=== PATIENT | female | born 1955 | race Caucasian/White ===

== ENCOUNTER 2018-04-16 12:52 | Emergency (ER) | payer SELFPAY ==
[2018-04-16] MEDS ORDERED: Metoclopramide HCl 10 MG/2 ML VIAL ONE (13:49)
[2018-04-16] MEDS ORDERED: diphenhydrAMINE 25 MG CAP ONE (13:54)
[2018-04-16 13:55] LABS: #Basophils 0.1 thou/uL (0.0-0.2); #Eosinphils 0.2 thou/uL (0.0-0.7); #Lymphocytes 1.5 thou/uL (1.20-3.40); #Monocytes 0.5 thou/uL (0.11-0.59); #Neutrophils 9.2 thou/uL (1.40-6.50); %Basophils 0.5 % (0.0-1.0); %Eosinophils 1.5 % (0.0-10.0); %Lymphocytes 12.9 % (21.0-51.0); %Monocytes 4.1 % (0.0-10.0); %Neutrophils 81.1 % (42.0-75.0); Hemoglobin 13.1 g/dL (12.0-16.0); Mean Corpuscular HGB CONC 33.5 g/dL (32.0-36.0); Mean Corpuscular Hemoglobin 30.4 pg (27.0-31.0); Mean Corpuscular Volume 90.6 fL (78.0-98.0); Mean Platelet Volume 9.1 fL (7.4-10.4); Platelet Count 196 thou/uL (130-400); RBC Distribution Width 12.7 % (11.5-14.5); Red Blood Cell (RBC) Count 4.31 mill/uL (4.20-5.40); White Blood Cell (WBC) Count 11.3 thou/uL (4.8-10.8)
[2018-04-16 14:17] LABS: ALT (SGPT) 15 U/L (8-55); AST (SGOT) 18 U/L (5-34); Albumin 4.1 g/dL (3.4-4.8); Alkaline Phosphatase 75 U/L (40-150); Anion Gap 14 mmol/L (10-20); BUN (Urea Nitrogen) 20 mg/dL (9.8-20.1); Bilirubin, Total 0.7 mg/dL (0.2-1.2); Calc. Creatinine Clearance 0 mL/min (70-130); Calcium 9.7 mg/dL (7.8-10.44); Carbon Dioxide 24 mmol/L (23-31); Chloride 104 mmol/L (98-107); Estimated GFR-MDRD 57; Globulin 3.2 g/dL (2.4-3.5); Glucose 116 mg/dL (80-115); Potassium 4.1 mmol/L (3.5-5.1); Protein, Total 7.3 g/dL (6.0-8.3); Sodium 138 mmol/L (136-145)
[2018-04-16 14:21] LABS: CKMB 1.6 ng/mL (0-6.6); Troponin I Less than 0.010 ng/mL (< 0.028)
--- NOTE | 2018-04-16 15:07 | RAD ---
CHEST 1 VIEW: HISTORY: Chest pain. COMPARISON: 08/07/2016. FINDINGS: Cardiac silhouette is magnified by projection. Pulmonary vasculature is unremarkable. Mediastinum i s midline with aortic calcification. No lobar consolidation or evidence of pneumothorax. Cardiac mo nitor leads overlie the chest. IMPRESSION: 1. Atherosclerosis. 2. No active cardiopulmonary abnormalities are demonstrated. POS: [facility]
== END 2018-04-16 15:49 | disposition home or self-care (01) ==
LOC: ERS 12:52
DX: R07.89 Other chest pain (principal); R51 Headache; E11.40 Type 2 diabetes mellitus with diabetic neuropathy, unspecified; E78.5 Hyperlipidemia, unspecified; K21.9 Gastro-esophageal reflux disease without esophagitis
CPT/HCPCS: 71045; 80053; 82553; 84484; 85025; 93005; 96361; 96374; J2765

== ENCOUNTER 2019-09-21 18:51 | Inpatient (IN) | payer SELFPAY ==
[2019-09-21] MEDS ORDERED: Ondansetron PF 4 MG/2 ML Vial ONE (19:04)
--- NOTE | 2019-09-21 20:17 | ULT ---
GALLBLADDER ULTRASOUND: 09/21/19 INDICATIONS: Right upper quadrant pain. Images of the gallbladder show evidence of mild pericholecystic edema. No gallstones are identified. The technologist describes a negative Kurtz's sign. The common duct is normal caliber measured at 5 to 6 mm. Pancreas is mostly obscured. The liver is unremarkable. The right kidney is unremarkable. IMPRESSION: Mild pericholecystic edema. No gallstones identified. Technologist describes a negative Kurtz's sign . POS: [facility]
[2019-09-21] MEDS ORDERED: Acetaminophen 325 MG TAB PO PRN (22:20)
[2019-09-21] MEDS ORDERED: Ondansetron PF 4 MG/2 ML Vial IVP PRN (22:20)
[2019-09-21] MEDS ORDERED: Ondansetron ODT 4 MG TAB SL PRN (22:20)
[2019-09-21 22:27] VITALS: BMI 31.1
[2019-09-21 23:11] LABS: Troponin I Less than 0.010 ng/mL (< 0.028)
--- NOTE | 2019-09-22 01:09 | PDOC.HHP ---
Hospitalist HPI - History of Present Illness Chest pain History of Present Illness: PCP: Mary Calhoun The patient is a 63/f with PMH significant for DMII, HLD, GERD that presents to the ER for the above complaint. The patient reports developing substernal chest pain, onset 1300, dull, 2/10, radiating to her back. The pain was constant and intensified for several hours. Exacerbated by nothing, relieved by nothing. Reports associated nausea and vomiting. Denies heart palpitations, light headedness, abdominal pain. For this reason, she went to the ER in [place]. ED Course: VS 97.3F, BP 170/73, HR 72, RR 13, Sp02 98% RA EKG SB 45 bpm CXR new linear opacity of RLL atelectasis or infiltrate troponins negative BNP 49 AST 217 ALT 542 bilirubin and ALP WNL RUQ US + for mild pericholecystic edema with negative arroyo sign Given: ASA and jese Hospitalist ROS - Review of Systems Constitutional: denies: fever, chills, sweats, weakness, malaise, other Eyes: denies: pain, vision change, conjunctivae inflammation, eyelid inflammation, redness, other ENT: denies: ear pain, ear discharge, nose pain, nose discharge, nose congestion , mouth pain, mouth swelling, throat pain, throat swelling, other Respiratory: denies: cough, dry, shortness of breath, hemoptysis, SOB with excertion, pleuritic pain, sputum, wheezing, other Cardiovascular: reports: chest pain. denies: palpitations, orthopnea, paroxysmal noc. dyspnea, light headedness Gastrointestinal: reports: nausea, vomiting. denies: abdominal pain, diarrhea, constipation, melena, hematochezia Genitourinary: denies: dysuria, frequency, incontinence, hematuria, retention, other Skin: denies: rash, bruising Neurological: denies: weakness, numbness, incoordination, change in speech, confusion Hospitalist History - Past Medical History Source: patient Cardiac: reports: HTN, Hyperlipidemia ARCHITECTURAL EXAMINER: reports: Peripheral neuropathy Gastrointestinal: reports: GERD Endocrine: reports: Diabetes - Past Surgical History Past Surgical History: reports: Hysterectomy - Family History Family History: reports: no pertinent history (non contributory for this case) - Social History Smoking Status: Never smoker Alcohol: reports: None Drugs: reports: none Living Situation: With Family 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 , works at cafe Activity level: independent ambulation - Exam General Appearance: NAD, awake alert Eye: anicteric sclera ENT: normocephalic atraumatic Neck: supple, no JVD Heart: RRR, no gallops, no rubs, normal peripheral pulses, II/IV Respiratory: CTAB, no wheezes, no rales, no ronchi, normal chest expansion Gastrointestinal: soft, non-tender, non-distended, normal bowel sounds, no guarding, no rigidity Extremities: no cyanosis, no edema Skin: no rashes Neurological: no focal deficits Psychiatric: normal affect, A&O x 3 Hospitalist Results - Labs Lab results: Troponin I Less than 0.010 ng/mL (< 0.028) 09/21/19 22:37 - EKG Interpretation EKG: SB 45 bpm in [place] ER - Radiology Interpretation US - abdomen Status: report reviewed by me Chest x-ray Status: report reviewed by me Hospitalist H&P A/P - Problem (1) Chest pain Code(s): R07.9 - CHEST PAIN, UNSPECIFIED Status: Acute Assessment and Plan: Admit to telemtry floor, observation status Expected length of stay less than 24 hours Heart score 4 Trend troponins Order Echocardiogram Consult cardiology Continue ASA Check TSH, FLP, Mag (2) Sinus bradycardia Code(s): R00.1 - BRADYCARDIA, UNSPECIFIED Status: Acute Assessment and Plan: Patient states never had slow heart rate Currently NSR Will obtain echocardiogram (3) Elevated liver enzymes Code(s): R74.8 - ABNORMAL LEVELS OF OTHER SERUM ENZYMES Status: Acute Assessment and Plan: Bilirubin and ALP withing normal limits Will order HIDA scan NPO p midnight light IVF hydration avoid hepatoxic medications Order lipase Repeat CMP in am (4) HLD (hyperlipidemia) Code(s): E78.5 - HYPERLIPIDEMIA, UNSPECIFIED Status: Chronic Assessment and Plan: No medication regimen Will check FLP in am (5) DMII (diabetes mellitus, type 2) Status: Chronic Assessment and Plan: Mild sliding scale AC/HS accuchecks Hold metformin and glypizide for now Last HA1C 6.3 (05/28/19) will recheck HA1C (6) HTN (hypertension) Code(s): I10 - ESSENTIAL (PRIMARY) HYPERTENSION Status: Acute Assessment and Plan: Will continue to monitor patient reports taking meds prn for blood pressure (7) GERD (gastroesophageal reflux disease) Code(s): K21.9 - GASTRO-ESOPHAGEAL REFLUX DISEASE WITHOUT ESOPHAGITIS Status: Acute Assessment and Plan: Will start Protonix IVP - Plan Plan: SCDs for DVT prophylaxis Full Code DPEMELIA [place] [phone]
[2019-09-22] MEDS ORDERED: Dextrose 5% in Water 1,000 ML IV PRN (01:14)
[2019-09-22] MEDS ORDERED: HumaLOG 300 UNITS/3 ML VIAL SC PRN (01:14)
[2019-09-22] MEDS ORDERED: Dextrose 50% Abboject 50 ML SYRINGE SLOW IVP PRN (01:14)
[2019-09-22] MEDS: Sodium Chloride 0.9% 1,000 ML IV SCH (01:53)
[2019-09-22 05:06] LABS: #Basophils 0.1 thou/uL (0.0-0.2); #Eosinphils 0.6 thou/uL (0.0-0.7); #Lymphocytes 0.9 thou/uL (1.20-3.40); #Monocytes 0.5 thou/uL (0.11-0.59); #Neutrophils 4.2 thou/uL (1.40-6.50); %Basophils 1.1 % (0.0-1.0); %Eosinophils 9.6 % (0.0-10.0); %Lymphocytes 14.4 % (21.0-51.0); %Monocytes 7.5 % (0.0-10.0); %Neutrophils 67.3 % (42.0-75.0); Hemoglobin 12.2 g/dL (12.0-16.0); Mean Corpuscular HGB CONC 34.3 g/dL (32.0-36.0); Mean Corpuscular Hemoglobin 31.4 pg (27.0-31.0); Mean Corpuscular Volume 91.4 fL (78.0-98.0); Mean Platelet Volume 9.9 fL (7.4-10.4); Platelet Count 131 thou/uL (130-400); RBC Distribution Width 12.9 % (11.5-14.5); White Blood Cell (WBC) Count 6.3 thou/uL (4.8-10.8)
[2019-09-22 05:27] LABS: Hemoglobin A1c 6.6 % (4.0-6.0)
[2019-09-22 05:34] LABS: ALT (SGPT) 489 U/L (8-55); AST (SGOT) 199 U/L (5-34); Albumin 3.8 g/dL (3.4-4.8); Alkaline Phosphatase 87 U/L (40-110); Anion Gap 13 mmol/L (10-20); BUN (Urea Nitrogen) 18 mg/dL (9.8-20.1); Bilirubin, Total 0.7 mg/dL (0.2-1.2); Calc. Creatinine Clearance 68 mL/min (70-130); Calcium 9.2 mg/dL (7.8-10.44); Carbon Dioxide 26 mmol/L (23-31); Cardiac Risk 4.7 (Less than 4.5); Chloride 104 mmol/L (98-107); Cholesterol 135 mg/dl (< 200 Desired); Estimated GFR-MDRD 49; Globulin 2.7 g/dL (2.4-3.5); Glucose 205 mg/dL (80-115); HDL Cholesterol 29 mg/dL (>60 Neg Risk); LDL Cholesterol, Calculated 86 mg/dL; Lipase 96 U/L (8-78); Magnesium 1.5 mg/dL (1.6-2.6); Potassium 3.9 mmol/L (3.5-5.1); Protein, Total 6.5 g/dL (6.0-8.3); Sodium 139 mmol/L (136-145); Triglycerides 102 mg/dL (Less than 150)
[2019-09-22] MEDS: Pantoprazole 40 MG VIAL IVP SCH (13:23)
[2019-09-22] MEDS: Aspirin 81 mg Enteric Coated Tablet PO SCH (13:23)
--- NOTE | 2019-09-22 13:24 | PDOC.HOSPP ---
- Subjective Encounter Date: 09/22/19 Encounter Time: 11:15 Subjective: no retrosternal pain or abd pain now no nausea or vomiting is ambulating in room she had taken 2 rounds of antibiotics for bronchitis in the last 3 weeks - Objective Vital Signs & Weight: Vital Signs (12 hours) Temp Pulse Resp BP Pulse Ox 09/22/19 07:27 98.1 F 72 16 128/62 96 09/22/19 04:50 98.0 F 75 16 128/61 95 Weight Weight 187 lb 3.2 oz I&O: 09/21/19 09/22/19 09/23/19 06:59 06:59 06:59 Intake Total 487 Output Total 300 Balance 187 Result Diagrams: 09/22/19 04:43 09/22/19 04:43 Additional Labs: Accuchecks 09/21/19 22:03 POC Glucose 62 L Hospitalist ROS - Medication Medications: Active Medications Generic Name Dose Route Start Last Admin Trade Name Freq PRN Reason Stop Dose Admin Sodium Chloride 1,000 mls @ 50 mls/hr 09/22/19 03:00 09/22/19 01:53 Normal Saline 0.9% IV 1,000 mls .Q20H AMBER Administration - Exam General Appearance: awake alert Eye: PERRL, anicteric sclera ENT: no oropharyngeal lesions, moist mucosa Neck: supple, no JVD Heart: RRR, no murmur Respiratory: no wheezes, no rales Gastrointestinal: soft, non-tender, non-distended, normal bowel sounds Extremities: no cyanosis, no edema Neurological: cranial nerve grossly intact, no focal deficits Psychiatric: normal affect, A&O x 3 Hosp A/P (1) Chest pain Code(s): R07.9 - CHEST PAIN, UNSPECIFIED Status: Acute (2) Elevated liver enzymes Code(s): R74.8 - ABNORMAL LEVELS OF OTHER SERUM ENZYMES Status: Acute (3) GERD (gastroesophageal reflux disease) Code(s): K21.9 - GASTRO-ESOPHAGEAL REFLUX DISEASE WITHOUT ESOPHAGITIS Status: Chronic Qualifiers: Esophagitis presence: esophagitis presence not specified Qualified Code(s) : K21.9 - Gastro-esophageal reflux disease without esophagitis (4) HTN (hypertension) Code(s): I10 - ESSENTIAL (PRIMARY) HYPERTENSION Status: Chronic Qualifiers: Hypertension type: essential hypertension Qualified Code(s): I10 - Essential (primary) hypertension (5) DMII (diabetes mellitus, type 2) Status: Chronic Qualifiers: Diabetes mellitus moth exterminator insulin use: without moth exterminator use (6) HLD (hyperlipidemia) Code(s): E78.5 - HYPERLIPIDEMIA, UNSPECIFIED Status: Chronic Qualifiers: Hyperlipidemia type: unspecified Qualified Code(s): E78.5 - Hyperlipidemia , unspecified (7) Obesity (BMI 30.0-34.9) Code(s): E66.9 - OBESITY, UNSPECIFIED Status: Chronic - Plan has elevated LFT's in cholestatic pattern, likely due to recent antibiotics for bronchitis usg RUQ showed mild edema of Gall bladder wall but no stones, cbd size was normal await HIDA, CT abd results (is allergic to iodine getting premedicated) last stress test in 2012 was normal with normal ef hemostable d/w patient and her neice at bedside
--- NOTE | 2019-09-22 13:54 | NM ---
HEPATOBILIARY SCAN: Date: 09/22/2019 HISTORY: 63-year-old female with right upper quadrant pain and mild pericholecystic edema on the gallbladder u ltrasound from yesterday. No gallstones are seen. RADIOPHARMACEUTICAL: 5.2 mCi technetium-99m mebrofenin injected intravenously. FINDINGS: There is good tracer extraction by the liver with prompt excretion into the biliary tract and small b owel loops, and filling of the gallbladder. The calculated gallbladder ejection fraction following an oral fatty meal measures 93%. IMPRESSION: Normal exam. POS: [facility]
[2019-09-22 15:19] LABS: HBCM Index 0.06 S/CO (0-0.79); Hep A IgM AB Non-Reactive (NonReactive); Hep A IgM S/CO 0.51 S/CO (0-0.79); Hep B Surf Ag Non-Reactive S/CO (NonReactive); Hep C IgG Ab Non-Reactive (NonReactive); Hep C Index 0.08 S/CO (0-0.79); Hepatitis B Core IgM Abs Non-Reactive (NonReactive)
--- NOTE | 2019-09-22 16:32 | CON ---
DATE OF CONSULTATION: 09/22/2019 REASON FOR CONSULTATION: Chest pain. HISTORY OF PRESENT ILLNESS: Mrs. Rob is a 63-year-old woman. The patient had an episode of chest pain yesterday, it was lower substernal and lasted for about 2 hours, it made her feel very uncomfortable. She was transferred here. She was found to have normal cardiac enzymes, but markedly increased liver function tests. The patient is pain-free now. She did not have chest pain or pressure. PAST MEDICAL HISTORY: 1. Diabetes. 2. Negative for smoking. 3. No previous cardiac history. She had some chest pain in 2012, normal stress test apparently. She also has a history of esophageal reflux. REVIEW OF SYSTEMS: CONSTITUTIONAL: No significant weight gain or loss. VISION: No changes. HEARING: No changes. PULMONARY: No cough or wheezing. GASTROINTESTINAL: No nausea, vomiting, or diarrhea. SKIN: No rashes. NEUROLOGIC: No unilateral weakness or numbness. PSYCHIATRIC: No unusual depression or anxiety. MEDICATIONS: 1. Prior to admission, she did take some erythromycin, but that was couple of weeks ago. 2. Metformin. 3. Glipizide. SOCIAL HISTORY: No alcohol or tobacco. PHYSICAL EXAMINATION: GENERAL: This is a pleasant 63-year-old woman, in no distress. VITAL SIGNS: Blood pressure 117/55, pulse 63 and regular. EYES: Sclerae nonicteric. Mouth, mucous membranes moist. NECK: Supple. No lymphadenopathy. LUNGS: Clear. CARDIAC: Normal S1, normal S2. I do not hear murmur, rub, or gallop. ABDOMEN: Obese, nontender. EXTREMITIES: Warm and dry. No clubbing, cyanosis, or edema. Good peripheral pulses. PERTINENT LABORATORY DATA: Creatinine is 1.12. AST is 199, ALT 489. The AST was 217 a day before and the ALT was 542, indicating they are coming down. EKGs, there was an episode of sinus bradycardia. No acute changes. Cardiac enzymes were negative. ASSESSMENT: 1. Chest pain of uncertain etiology. 2. Increased liver function test. 3. Normal troponin levels. 4. Allergic to iodine. PLAN: 1. CT scan of the abdomen is scheduled for tomorrow. 2. She is receiving prednisone. Obviously, her sugars will increase with that transiently. We will be glad to follow with you. Job ID: [id number]
[2019-09-22] MEDS: HumaLOG 300 UNITS/3 ML VIAL SC PRN (18:29)
[2019-09-22] MEDS ORDERED: tiZANidine HCl 4 MG TAB PO PRN (19:56)
[2019-09-22] MEDS ORDERED: predniSONE 50 MG TAB PO SCH (20:00)
[2019-09-22] MEDS: Melatonin 3 MG TAB PO SCH (21:59)
[2019-09-23] MEDS ORDERED: predniSONE 50 MG TAB PO SCH ×2 (02:00→08:00)
[2019-09-23] MEDS: Sodium Chloride 0.9% 1,000 ML IV SCH ×3 (02:01→21:51)
[2019-09-23 06:31] LABS: ALT (SGPT) 520 U/L (8-55); AST (SGOT) 162 U/L (5-34); Albumin 4.1 g/dL (3.4-4.8); Alkaline Phosphatase 96 U/L (40-110); Anion Gap 14 mmol/L (10-20); BUN (Urea Nitrogen) 18 mg/dL (9.8-20.1); Bilirubin, Total 0.7 mg/dL (0.2-1.2); Calc. Creatinine Clearance 57 mL/min (70-130); Calcium 9.1 mg/dL (7.8-10.44); Carbon Dioxide 24 mmol/L (23-31); Chloride 103 mmol/L (98-107); Estimated GFR-MDRD 39; Globulin 2.7 g/dL (2.4-3.5); Glucose 336 mg/dL (80-115); Potassium 4.9 mmol/L (3.5-5.1); Protein, Total 6.8 g/dL (6.0-8.3); Sodium 136 mmol/L (136-145)
[2019-09-23 06:36] LABS: Troponin I Less than 0.010 ng/mL (< 0.028)
[2019-09-23] MEDS ORDERED: diphenhydrAMINE 50 MG CAP PO SCH (08:00)
[2019-09-23] MEDS: Multivit, Therapeutic 1 TAB PO SCH (08:09)
[2019-09-23] MEDS: Aspirin 81 mg Enteric Coated Tablet PO SCH (08:09)
[2019-09-23] MEDS: Pantoprazole 40 MG VIAL IVP SCH (08:10)
--- NOTE | 2019-09-23 09:42 | CT ---
EXAM: CT abdomen with and without IV contrast CT pelvis with IV contrast PROVIDED CLINICAL HISTORY: Mid epigastric abdominal pain with nausea and vomiting. Evaluate for pancreatitis. COMPARISON: None FINDINGS: Vascular calcifications are seen in the coronary arteries as well as in the abdominal aorta and iliac arteries. A coarse calcification is seen in the dome of the liver which is likely reflective of prior granuloma tous disease. Liver otherwise demonstrates a normal CT appearance. Gallbladder is contracted. Portal veins are patent. Spleen, pancreas, bilateral adrenal glands, and kidneys demonstrate a normal CT appearance. No pancre atic mass or pancreatic or peripancreatic fluid collection is seen. There is a large fluid attenuation collection seen in the left adnexal region measuring 6.9 cm cranio caudal x10 cm AP x5.7 cm transverse. Small calcification is seen posteriorly along the wall of the cystic lesion. This could be related to left adnexal cyst which could be ovarian in origin and relate d to cystadenoma or cystadenocarcinoma given large size. This does result in mass effect on the posterolateral aspect of the urinary bladder. There is evidence of hysterectomy. Small amount of retained fecal material seen throughout the colon. The appendix is visualized and nor mal in caliber. Loops of small bowel are normal in caliber. No free fluid or lymphadenopathy is seen in the abdomen. Multilevel degenerative changes are seen in the spine. No suspicious lytic or sclerotic osseous lesio ns are identified. IMPRESSION: 1. Left adnexal cystic lesion which does demonstrate fluid attenuation with greatest dimension of 10 cm. This may represent a left adnexal cystic lesion related to either cystadenoma or cystadenocarcinoma. Gynecological consultation is recommended for further evaluation. 2. Evidence of hysterectomy. 3. No CT evidence of pancreatitis. Pancreas enhances normally, and no pancreatic or peripancreatic fl uid collection is identified. 4. Vascular calcifications. 6. Small to moderate amount of retained fecal material seen throughout the colon suggesting constipat ion.
[2019-09-23] MEDS: HumaLOG 300 UNITS/3 ML VIAL SC PRN (12:33)
[2019-09-23] MEDS ORDERED: Iopamidol 370 76% 100 ML VIAL ONE (15:00)
--- NOTE | 2019-09-23 18:24 | ULT ---
PELVIC ULTRASOUND: 09/23/19 INDICATIONS: Follow-up pelvic mass seen on CT. Transabdominal and endovaginal ultrasound performed. Patient is post hysterectomy many years ago. Large cystic mass in the left adnexa is again seen corresponding to the CT findings. This measures ap proximately 7 x 10 cm on ultrasound. This is mildly complex. Site of origin cannot be confirmed. IMPRESSION: Large cystic mass left pelvis. POS: [facility]
--- NOTE | 2019-09-23 18:42 | CON ---
DATE OF CONSULTATION: 09/23/2019 REQUESTING PHYSICIAN: [facility] CONSULT PERFORMED BY: Kenny Blair MD REASON FOR CONSULTATION: Pelvic mass seen on CT. HISTORY OF PRESENT ILLNESS: Ms. Rob is a 63-year-old, white, G2, P1, menopausal times many years status post abdominal hysterectomy, who was initially admitted to the hospital with complaints of epigastric and chest pain. During the course of her workup, she had a CT done this morning, that demonstrated a 6.9 x 10 x 5.7 fluid attenuation consistent with a left adnexal mass. The patient states that her last Pap smear was approximately 2 years ago, and her exam was normal at that time. She denies associated pelvic pain. PAST OBSTETRICAL HISTORY: She has had 1 section as well as 1 stillbirth at 6 months delivered in [place], [place]. She states that she had a hysterectomy many years ago. It is unclear what the indication for that was. PAST MEDICAL HISTORY: Type 2 diabetes and diabetic neuropathy. PAST SURGICAL HISTORY: Abdominal hysterectomy and as above. MEDICATIONS ON ADMISSION: 1. Metformin. 2. Glyburide. 3. Medical cannabis like product. ALLERGIES: IODINE. SOCIAL HISTORY: Denies tobacco, alcohol, or drug use. FAMILY HISTORY: She denies pelvic malignancy in the family. REVIEW OF SYSTEMS: Denies pelvic pain or vaginal bleeding. PHYSICAL EXAMINATION: VITAL SIGNS: Blood pressure 123/63, pulse 69, respirations 16 with 92% O2 on room air, temperature is 98.4. GENERAL: She is pleasant and in no acute distress. She is a good historian. ABDOMEN: Soft and nontender. There is no guarding or rebound. There is a well-healed midline scar seen. LABORATORY DATA: On admission, white count 6.3, hemoglobin and hematocrit 12.2 and 35.6, platelet count is 131,000. Recent chemistry showed a creatinine of 1.36. Her total bilirubin is 0.7, and her AST and ALT are 162 and 520 respectively. Serial troponins have been ordered. ASSESSMENT: Pelvic mass. PLAN: I have ordered an ultrasound as well as a CA-125 to further define this pelvic mass seen on CT. Of note is the fact that she has a stress test as part of a cardiac workup ordered for in the morning. We will follow up with her regarding these results. Job ID: [id number]
--- NOTE | 2019-09-23 19:35 | PDOC.HOSPP ---
- Subjective Encounter Date: 09/23/19 Encounter Time: 18:00 Subjective: The patient states her chest pain hasn't reoccurred since being in the hospital. She had an episode while sitting and watching a movie and states that it was severe in the middle of her chest and it took her breath away and brought her to tears. It was relieved by aspirin. No diaphoresis or arm pain. She denies abdominal pain, nausea, vomiting. She did have some nausea on the day of admission - Objective Vital Signs & Weight: Vital Signs (12 hours) Temp Pulse Resp BP Pulse Ox 09/23/19 15:45 97.3 F L 76 16 129/70 94 L 09/23/19 11:45 98.4 F 69 16 122/63 92 L 09/23/19 07:34 97.8 F 78 18 112/61 94 L Weight Weight 191 lb I&O: 09/22/19 09/23/19 09/24/19 06:59 06:59 06:59 Intake Total 487 1572 Output Total 300 1850 Balance 187 -278 Result Diagrams: 09/22/19 04:43 09/23/19 04:44 Additional Labs: Accuchecks 09/23/19 09/23/19 09/23/19 16:21 10:23 06:10 POC Glucose 329 H 268 H 314 H 09/22/19 20:19 POC Glucose 126 H Hospitalist ROS - Review of Systems Constitutional: denies: fever, chills - Medication Medications: Active Medications Generic Name Dose Route Start Last Admin Trade Name Freq PRN Reason Stop Dose Admin Aspirin 81 mg 09/22/19 09:00 09/23/19 08:09 Ecotrin PO 81 mg DAILY AMBER Administration Sodium Chloride 1,000 mls @ 80 mls/hr 09/23/19 08:15 09/23/19 10:36 Normal Saline 0.9% IV 09/23/19 22:00 Not Given .[id number] AMBER Insulin Human Lispro 0 units 09/22/19 01:14 09/23/19 12:33 Humalog SC 4 unit .MILD SLIDING SCALE PRN Administration Mild Correctional Scale Insulin Human Lispro 0 units 09/22/19 01:14 09/23/19 06:10 Humalog SC 4 unit .BEDTIME SLIDING SC PRN Administration Bedtime Correctional Scale Melatonin 9 mg 09/22/19 21:00 03/18/20 21:59 Melatonin PO 9 mg HS AMBER Administration Multivitamins 1 tab 09/23/19 09:00 09/23/19 08:09 Theragran PO 1 tab DAILY AMBER Administration Pantoprazole Sodium 40 mg 09/22/19 09:00 09/23/19 08:10 Protonix IVP 40 mg DAILY AMBER Administration - Exam General Appearance: NAD, awake alert Eye: PERRL, anicteric sclera ENT: normocephalic atraumatic, no oropharyngeal lesions Neck: supple, no JVD Heart: RRR, no murmur, no gallops, no rubs Respiratory: CTAB, no wheezes, no rales, no ronchi Gastrointestinal: soft, non-tender, non-distended, normal bowel sounds Extremities: no cyanosis, no clubbing, no edema Skin: normal turgor, no lesions, no rashes Neurological: cranial nerve grossly intact, normal sensation to touch, no focal deficits, no new deficit Hosp A/P - Plan ECHO: EF 60-65%. Otherwise normal. CT abdomen 09/22: vascular calcifications seen in the coronary arteries. Gallbladder contracted. Prior granulomatous disease in the liver. 6.9 cm by 10 cm x 5.7 cm left adnexal lesion with resulting mass affect on posterolateral aspect of urinary bladder. Constipation. Pelvic ultrasound: large cystic mass left adnexa 7 x 10 cm This is a 63 year old female with past medical history of diabetes who presented to the ER with chest pain #Chest pain - she has had negative HIDA scan, ECHO was normal, troponin negative - cardiology consulted, plan for stress test tomorrow #Left ovarian mass - noted initially on CT abdomen. Pelvic ultrasound shows large cystic mass. OBGYn consulted and following #Diabetes - insulin sliding scale #Transaminitis - LFT downtrending. Hepatitis serology negative DVT prophylaxis: Code status:full code
[2019-09-23] MEDS: Melatonin 3 MG TAB PO SCH (21:51)
[2019-09-24 05:05] LABS: Troponin I Less than 0.010 ng/mL (< 0.028)
[2019-09-24 05:06] LABS: ALT (SGPT) 325 U/L (8-55); AST (SGOT) 47 U/L (5-34); Albumin 3.5 g/dL (3.4-4.8); Alkaline Phosphatase 77 U/L (40-110); Anion Gap 10 mmol/L (10-20); BUN (Urea Nitrogen) 19 mg/dL (9.8-20.1); Bilirubin, Total 0.5 mg/dL (0.2-1.2); Calc. Creatinine Clearance 71 mL/min (70-130); Calcium 8.6 mg/dL (7.8-10.44); Carbon Dioxide 26 mmol/L (23-31); Chloride 106 mmol/L (98-107); Estimated GFR-MDRD 50; Globulin 2.3 g/dL (2.4-3.5); Glucose 231 mg/dL (80-115); Protein, Total 5.8 g/dL (6.0-8.3); Sodium 138 mmol/L (136-145)
[2019-09-24] MEDS: Pantoprazole 40 MG VIAL IVP SCH (08:23)
[2019-09-24] MEDS: Multivit, Therapeutic 1 TAB PO SCH (08:24)
[2019-09-24] MEDS: Aspirin 81 mg Enteric Coated Tablet PO SCH (08:24)
--- NOTE | 2019-09-24 13:03 | STRESS ---
Acquisition Time: 2019-09-24 11:03:18 Total Exercise Time: 00:01:00 Test Indications: CHEST PAIN Medications: Protocol: LEXISCAN Max HR: 083 BPM 53% of Pred: 156 BPM Max BP: 122/060 mmHG Max Work Load: 1.0 METS THE PATIENT WAS INJECTED WITH LEXISCAN. SHE DID DEVELOP CHEST PAIN. THERE WAS NO SIGNIFICANT ST DEPRESSION. AWAIT NUCLEAR IMAGES FOR DEFINITIVE DIAGNOSIS. Confirmed by LESLI GALLO ([id number]), marketing editor KATHARINE CADE ([id number]) on 09/24/2019 1:03:00 PM Referred By: MD Benjamin REESE Confirmed By:LESLI GALLO
--- NOTE | 2019-09-24 14:16 | NM ---
MYOCARDIAL PERFUSION SCAN: 09/24/19 INDICATIONS: Chest pain. The patient was given 10 millicuries of technetium Sestamibi for rest imaging and 30 millicuries for stress imaging. The patient was stressed according to Lexiscan protocol. FINDINGS: The left ventricle was imaged with SPECT imaging. Attenuation images obtained. There is decreased activity in the apex on stress images seen with both nonattenuation and attenuatio n correction. Activity in the apex is seen on the rest images. Wall motion appears normal. Ejection fraction recorded at 80%. IMPRESSION: Evidence of reversible ischemia in the apex. POS: [facility]
[2019-09-24] MEDS ORDERED: Polyethylene Glycol 3350 17 GM Packet PO PRN (14:29)
[2019-09-24] MEDS ORDERED: Senokot S 8.6-50 MG TAB PO SCH (14:30)
[2019-09-24] MEDS ORDERED: Regadenoson 0.4 MG/5 ML SYRINGE ONE (15:01)
[2019-09-24 15:21] VITALS: BP 122/61; TEMP 97.7
[2019-09-24] MEDS ORDERED: Nitroglycerin 0.4 MG TAB (25 Tab Bottle) SL PRN (15:57)
[2019-09-24] MEDS ORDERED: Clopidogrel Bisulfate 300 MG TAB PO SCH (16:00)
--- NOTE | 2019-09-24 16:25 | PRG ---
DATE OF SERVICE: 09/24/2019 SUBJECTIVE: Ms. Rob is doing fine. No chest pain or pressure. OBJECTIVE: VITAL SIGNS: Blood pressure 115/59, pulse 66, it is regular. She has also had some sinus bradycardia in the upper 40s early this morning at rate of 48. LUNGS: Clear. CARDIAC: Normal S1, normal S2. ABDOMEN: Soft, nontender. TESTS AND LABS: Stress test reveals some ischemia at the apex. Her liver function tests continue to improve. Please see the lab. ASSESSMENT: 1. Lower substernal chest pain, lasting about 2 hours of uncertain etiology. 2. Increased liver function test, improving. 3. Abnormal stress test. 4. Longstanding diabetes. 5. Allergic to iodine. PLAN: Recommend cardiac catheterization. Discussed with the patient the option of spending the weekend here and doing it Friday versus going home and bringing her back for the procedure. The patient did have negative cardiac enzymes, and I am really not sure if the pain she had is cardiac in origin as there were no EKG changes and troponins were all completely normal. I think it is reasonable to bring her back as an outpatient, but I did offer the option of staying here and getting it done, but she decides she wishes to go home. She understands there is some risk, but she wishes to proceed with going home and coming back as an outpatient. As a precaution, we will give her aspirin, Plavix, and then nitroglycerin. Our office will contact her. She said she goes on Medicare October 05. She wishes to await until then to come back for this procedure. I told her if she has recurrent chest pain resistant to one nitroglycerin, she should come back to the hospital. Job ID: [id number]
[2019-09-24] MEDS: HumaLOG 300 UNITS/3 ML VIAL SC PRN (17:08)
--- NOTE | 2019-09-24 17:45 | PDOC.BPN ---
- Brief Progress Note I discussed the findings of a normal Ca-125 with the patient. She will ultimately need surgery, but as it is not urgent, she can follow up as an outpatient for definitive management. A referral was sent to [facility]'s [place] for follow up in 2-3 weeks. The patient voiced understanding and wished to follow up after October first anyway. Please let us know if we can be of any further assistance.
[2019-09-24] MEDS ORDERED: Famotidine 20 MG TAB PO SCH (21:00)
--- NOTE | 2019-09-25 08:46 | EKG ---
Test Reason : Blood Pressure : / mmHG Vent. Rate : 045 BPM Atrial Rate : 045 BPM P-R Int : 160 ms QRS Dur : 074 ms QT Int : 456 ms P-R-T Axes : 031 -07 008 degrees QTc Int : 394 ms Sinus bradycardia Minimal voltage criteria for LVH, may be normal variant Borderline ECG Confirmed by JACQUES TOHRNTON D.O. ([id number]), assignment editor OLAMIDE DUTTA ([id number]) on 09/25/2019 8:45:31 AM Referred By: Confirmed By:JACQUES THORNTON D.O.
[2019-09-25] MEDS ORDERED: Clopidogrel Bisulfate 75 MG TAB PO SCH (09:00)
--- NOTE | 2019-09-27 08:52 | DIS ---
DATE OF ADMISSION: 09/21/2019 DATE OF DISCHARGE: 09/24/2019 DISCHARGE DIAGNOSES: 1. Chest pain possibly secondary to coronary artery disease 2. Left ovarian cyst 3. Tansaminitis. CONSULTATIONS: Cardiology with Dr. Marlon Guillaume; Dr. Kenny Blair with OB/ ASSISTANT SOFTBALL COACH. PROCEDURES: Nuclear stress test. BRIEF HISTORY AND PRESENT ILLNESS: This is a 63-year-old female with a past medical history of diabetes, hypertension, GERD, who presented to the emergency room due to substernal chest pain. The patient states that her chest pain that started while she was sitting and watching a movie. It was severe in the middle of her chest and it took her breath away and brought her to tears. She denied any shortness of breath or arm pain. The patient stated her pain was relieved by aspirin. She presented to the emergency room for further evaluation. She did have some nausea, but no other GI symptoms. Upon arrival to the emergency room, the patient had an EKG, which showed sinus bradycardia. She was admitted for further workup. She was also found to have transaminitis with an AST of 199, ALT of 489, and normal alkaline phosphatase. She was admitted for further workup. HOSPITAL COURSE: Chest pain, possibly secondary to CAD: The patient had 3 sets of troponins, which were normal. She did have a HIDA scan done due to transaminitis, which was normal. She underwent a CT scan of her abdomen on the , which happened to show a contracted gallbladder, prior granulomatous disease in the liver and a 6.9 cm x 10 cm x 5.7 cm left adnexal lesion. Cardiology was consulted and ordered a nuclear stress test which came back positive for reversible ischemia at the apex. Cardiology spoke with the patient and she decided that she wanted to go home and get a cardiac cath as an outpatient. She was loaded with Plavix 300 mg while in the hospital. Cardiology recommended the patient be started on aspirin, Plavix, and nitroglycerin p.r.n. She was not started on the beta shankar given the fact that she becomes bradycardic to the 40's at times. She should follow up with her PCP in a week and schedule an outpatient catheterization with Dr. Guillaume as soon as possible. Left ovarian mass: This was noted incidentally on CT scan of her abdomen. Gynecology was consulted and ordered a pelvic ultrasound which showed a large cystic mass in the left adnexum, 7 x 10 cm. CA-125 was normal. Gynecology felt that this is most likely benign. However, they did recommend that she follow up with [facility]FAC[facility] TECHNICIAN care given the small chance that it could be cancer and it may need to be resected at some point in the future. Transaminitis: The patient had LFTs that were elevated. Her hepatitis serology was checked, which was negative. Her CT scan of her abdomen showed no pathology. She is tolerating a diet on the day of discharge. DISCHARGE PHYSICAL EXAMINATION: VITAL SIGNS: Temperature 97.7, heart rate 56, respiratory rate 16, O2 saturation 97% on room air, blood pressure 122/61. GENERAL: The patient is alert, awake, oriented x3. CVS: Regular rate and rhythm with no murmurs, rubs, or gallops. LUNGS: Clear to auscultation bilaterally. ABDOMEN: Positive bowel sounds, soft, nontender, nondistended. EXTREMITIES: No edema. PERTINENT LABORATORY DATA: CBC on 09/21: Unremarkable. BMP on 09/23: Unremarkable. HB A1c: 6.6. AST: 199, 162, 47. ALT: 49, 520, 325. Alkaline phosphatase: Normal at 77. Troponin I: 0.010, 0.010 x3. Lipid panel: LDL 86, total cholesterol 135, HDL 29. Lipase: 96. CA-125: 12.4. TSH: 2.574. Serology: Negative for hepatitis panel. IMAGING DATA: Abdominal ultrasound on 09/20: Mild pericholecystic edema. No gallstones identified. HIDA scan on 09/21: Normal exam. CT abdomen and pelvis on 09/22: Left adnexal cystic lesion demonstrating fluid attenuation, greatest dimension of 10 cm. This may represent a left adnexal cystic lesion related to either cystadenoma or cystadenocarcinoma. No evidence of pancreatitis. Small to moderate amount of retained fecal material seen throughout the colon. Vascular calcifications. Pelvic ultrasound on 09/22: Large cystic mass in the left pelvis, 7 x 10 cm. Cardiolite stress test: The patient developed chest pain at rest. Nuclear stress test on 09/23: Evidence of a reversible ischemia at the apex. Echo: EF 60% to 65%. No evidence of MR. No evidence of mitral valve stenosis. DISCHARGE CONDITION: Stable. ACTIVITY: As tolerated. DIET: Heart healthy diet. DISCHARGE MEDICATIONS: NEW PRESCRIPTIONS: 1. Aspirin 81 mg p.o. daily. 2. Plavix 75 mg p.o. daily. 3. Nitroglycerin 0.4 mg sublingual q.5 minutes p.r.n. All other home medications were resumed. DISCHARGE INSTRUCTIONS: The patient is to follow up with her PCP in a week and her overlock operator in a week for outpatient cardiac cath. She is return to the hospital if she has any chest pain. Job ID: [id number] [facility]
== END 2019-09-24 17:30 | disposition home or self-care (01) | DRG 303 ==
LOC: ERS 18:51 → 2SW 20:40 → OBSVTOIN 20:40 → ERS 21:42 → 2NO 09-23 19:18
PROVIDERS: ADMIT Internal Medicine; ATTEND Internal Medicine
DX: I25.10 Atherosclerotic heart disease of native coronary artery without angina pectoris (principal); E78.5 Hyperlipidemia, unspecified; K21.9 Gastro-esophageal reflux disease without esophagitis; R74.8 Abnormal levels of other serum enzymes; N83.202 Unspecified ovarian cyst, left side; E11.9 Type 2 diabetes mellitus without complications; I10 Essential (primary) hypertension; E66.9 Obesity, unspecified; Z68.31 Body mass index [BMI] 31.0-31.9, adult; Z91.041 Radiographic dye allergy status; Z90.710 Acquired absence of both cervix and uterus; Z79.84 Long term (current) use of oral hypoglycemic drugs; N83.9 Noninflammatory disorder of ovary, fallopian tube and broad ligament, unspecified; R74.0 Nonspecific elevation of levels of transaminase and lactic acid dehydrogenase [LDH]
CPT/HCPCS: 36415; 36416; 74178; 76705; 76856; 78227; 78452; 80053; 80061; 80074; 83036; 83690; 83735; 83880; 84443; 84484; 85025; 86304; 90471; 90732; 93005; 93017; 93306; 96374; A9500; A9537; C9113; G0009; J2405; J2785; J7512; Q0163; Q9967

== ENCOUNTER 2019-10-07 14:18 | Outpatient (CLI) | payer SELFPAY ==
[2019-10-07 15:25] LABS: #Basophils 0.1 thou/uL (0.0-0.2); #Eosinphils 0.5 thou/uL (0.0-0.7); #Lymphocytes 1.5 thou/uL (1.20-3.40); #Monocytes 0.5 thou/uL (0.11-0.59); #Neutrophils 4.3 thou/uL (1.40-6.50); %Basophils 0.9 % (0.0-1.0); %Eosinophils 7.1 % (0.0-10.0); %Lymphocytes 22.4 % (21.0-51.0); %Monocytes 6.7 % (0.0-10.0); %Neutrophils 62.9 % (42.0-75.0); Mean Corpuscular HGB CONC 33.2 g/dL (32.0-36.0); Mean Corpuscular Hemoglobin 30.8 pg (27.0-31.0); Mean Corpuscular Volume 92.7 fL (78.0-98.0); Mean Platelet Volume 9.7 fL (7.4-10.4); Platelet Count 134 thou/uL (130-400); RBC Distribution Width 12.8 % (11.5-14.5); Red Blood Cell (RBC) Count 4.23 mill/uL (4.20-5.40); White Blood Cell (WBC) Count 6.8 thou/uL (4.8-10.8)
[2019-10-07 15:34] LABS: INR-International Normal Ratio 1.1; PTT 30.8 SEC (22.9-36.1); Prothrombin Time 14.4 SEC (12.0-14.7)
[2019-10-07 15:50] LABS: ALT (SGPT) 399 U/L (8-55); AST (SGOT) 171 U/L (5-34); Alkaline Phosphatase 82 U/L (40-110); Anion Gap 13 mmol/L (10-20); BUN (Urea Nitrogen) 18 mg/dL (9.8-20.1); Bilirubin, Total 1.1 mg/dL (0.2-1.2); Calc. Creatinine Clearance 0 mL/min (70-130); Calcium 9.5 mg/dL (7.8-10.44); Carbon Dioxide 25 mmol/L (23-31); Chloride 104 mmol/L (98-107); Estimated GFR-MDRD 55; Globulin 2.9 g/dL (2.4-3.5); Glucose 135 mg/dL (80-115); Protein, Total 6.9 g/dL (6.0-8.3); Sodium 138 mmol/L (136-145)
== END 2019-10-07 14:19 | disposition home or self-care (01) ==
LOC: LABBT 14:18
PROVIDERS: ATTEND Internal Medicine Cardiovascular Disease
DX: Z01.812 Encounter for preprocedural laboratory examination (principal); I20.0 Unstable angina
CPT/HCPCS: 80053; 85025; 85610; 85730

== ENCOUNTER 2019-10-08 06:19 | Inpatient (IN) | payer MEDICARE, SELFPAY ==
[2019-10-08] MEDS ORDERED: diphenhydrAMINE 25 MG CAP ONE (07:26)
[2019-10-08] MEDS ORDERED: Iopamidol 370 76% 100 ML VIAL ONE (09:05)
[2019-10-08] MEDS ORDERED: Diazepam 5 MG TAB ONE (09:14)
[2019-10-08] MEDS ORDERED: Hydrocortisone Sod Succ/PF 100 mg/2 ml Vial ONE (09:31)
[2019-10-08] MEDS ORDERED: Midazolam HCl 2 mg/2 ml Vial ONE (10:14)
[2019-10-08] MEDS ORDERED: Fentanyl 100 MCG/2 ML VIAL ONE (10:14)
[2019-10-08] MEDS ORDERED: Nitroglycerin 2% Ointment 1 INCH/1 GM Packet ONE (10:48)
[2019-10-08] MEDS ORDERED: Sodium Chloride 0.9% 1,000 ML IV SCH (11:41)
[2019-10-08] MEDS ORDERED: Acetaminophen/Codeine 30-300mg Tablet PO PRN ×2 (11:41)
[2019-10-08] MEDS ORDERED: Nitroglycerin 0.4 MG TAB (25 Tab Bottle) SL PRN (11:41)
[2019-10-08] MEDS ORDERED: traMADol HCl 50 MG TAB PO PRN (11:41)
[2019-10-08 12:39] VITALS: BMI 30.7
[2019-10-08] MEDS ORDERED: Communication Order-Pharmacy FS SCH (14:13)
[2019-10-08] MEDS ORDERED: Diazepam 5 MG TAB PO PRN (14:13)
--- NOTE | 2019-10-08 14:38 | RAD ---
Chest one view HISTORY: Chest pain. COMPARISON: 09/21/2019. FINDINGS: Cardiac silhouette is magnified by projection. Pulmonary vasculature is unremarkable. Media stinum is midline with aortic calcification. Linear atelectasis at the right base on the previous study has resolved. No lobar consolidation or ev idence of pneumothorax. Degenerative changes of the shoulders. campus monitor leads overlie the chest. IMPRESSION : Atherosclerosis. No active cardiopulmonary abnormalities are demonstrated.
--- NOTE | 2019-10-08 15:19 | CON ---
DATE OF CONSULTATION: 10/08/2019 REASON FOR CONSULTATION: Evaluate the patient for coronary artery bypass grafting. HISTORY OF PRESENT ILLNESS: Ms. Rob is a very pleasant 63-year-old woman, who was seen in the hospital last week, having resting angina. She underwent appropriate workup including nuclear stress test, which showed anterior apical reversible ischemia. Ejection fraction was 80%. She did not want to have cardiac catheterization at that time due to financial concerns, but re-presented today for semielective cardiac catheterization. Catheterization has shown severe three-vessel disease. Potential bypassable targets included LAD, OM1, OM2, and PDA. I have been asked to see her to discuss coronary artery bypass grafting. Currently, she is resting comfortably in bed without any chest pain or shortness of breath. PAST MEDICAL HISTORY: 1. Coronary artery disease. 2. Type 2 diabetes mellitus. 3. Diabetic neuropathy. PAST SURGICAL HISTORY: 1. Abdominal hysterectomy. 2. . CURRENT MEDICATIONS: At home; 1. Tizanidine 4 mg t.i.d. p.r.n. leg cramps. 2. Metformin 750 mg at bedtime. 3. Glipizide 10 mg b.i.d. 4. Melatonin 10 mg at bedtime. 5. Aspirin 81 mg daily. 6. Plavix 75 mg daily - this was started at her last admission. ALLERGIES: IODINE. SOCIAL HISTORY: She does not use tobacco. She is . due to the coronavirus. REVIEW OF SYSTEMS: Ten-point review of systems is performed and is negative except as above. PHYSICAL EXAMINATION: GENERAL: This is a well-developed, well-nourished woman, resting comfortably on the telemetry unit. VITAL SIGNS: Height is 5 feet and 5 inches, weight is 184 pounds, and BSA is 1.96. Temperature is 98.7, pulse is 54 and regular, blood pressure is 115/57, and room air saturations 95%. HEENT: Sclerae are nonicteric. Pupils are equal and round bilaterally. NECK: Supple without bruit. CHEST: Clear bilaterally. HEART: Rhythm is regular. ABDOMEN: Soft and nontender without mass. EXTREMITIES: No edema. There are no varicose veins. VASCULAR: She has palpable carotid, radial, femoral, and dorsalis pedis pulses bilaterally. PSYCHIATRIC: She is awake, alert, and oriented to person, place, and time. LABORATORY DATA: Of note, her hemoglobin is 13.0, platelet count is 134,000. Potassium is 4.0, creatinine is 1.02. Her A1c is 6.6. Total cholesterol 135 with an LDL of 86 and HDL of 29. ASSESSMENT AND PLAN: This is a very pleasant 63-year-old woman with severe three-vessel disease on cardiac catheterization. Risks, benefits, and options to coronary artery bypass grafting have been discussed with her in detail. Ventricular function is preserved at 80%. Potential bypassable targets included left anterior descending, two obtuse marginals, and posterior descending artery. Plan for surgery on Friday. Job ID: [id number]
[2019-10-08] MEDS ORDERED: Dextrose 5% in Water 1,000 ML IV PRN (17:49)
[2019-10-08] MEDS ORDERED: Dextrose 50% Abboject 50 ML SYRINGE IVP PRN (17:49)
[2019-10-08] MEDS: HumaLOG 300 UNITS/3 ML VIAL SC PRN ×2 (18:00→20:29)
[2019-10-08] MEDS ORDERED: Melatonin 3 MG TAB PO PRN (18:43)
[2019-10-08] MEDS ORDERED: Aspirin 81 mg Enteric Coated Tablet PO SCH (19:00)
[2019-10-08] MEDS ORDERED: glipiZIDE 5 MG TAB PO SCH (19:00)
[2019-10-08] MEDS ORDERED: Enoxaparin Sodium 40 MG/0.4 ML SYRINGE SC SCH (21:00)
[2019-10-08] MEDS: Nitroglycerin 2% Ointment 1 INCH/1 GM Packet TOP SCH (21:49)
[2019-10-09] MEDS: glipiZIDE 5 MG TAB PO SCH ×2 (09:22→17:48)
[2019-10-09] MEDS: Nitroglycerin 2% Ointment 1 INCH/1 GM Packet TOP SCH ×2 (09:22→20:34)
[2019-10-09] MEDS: Aspirin 325 mg Enteric Coated Tablet PO SCH (09:22)
[2019-10-09] MEDS: HumaLOG 300 UNITS/3 ML VIAL SC PRN ×2 (09:23→11:41)
[2019-10-09] MEDS: Enoxaparin Sodium 30 MG/0.3 ML SYRINGE SC SCH ×2 (09:31→20:34)
--- NOTE | 2019-10-09 09:37 | PRG ---
DATE OF SERVICE: 10/09/2019 SUBJECTIVE: Ms. Rob is doing well. She had a good night. Her heart rate gets in the mid 40s at times. It is now in the mid 50s. OBJECTIVE: VITAL SIGNS: Blood pressure 111/54. She is not having chest pain. LUNGS: Clear. CARDIAC: Normal S1, normal S2. ABDOMEN: Soft and nontender. ASSESSMENT: 1. Three-vessel coronary artery disease for surgery next week. 2. Diabetes. Blood sugar was high yesterday due to the steroids. PLAN: 1. She is on low-dose Lovenox. 2. Proceeding the bypass on Friday. Job ID: [id number]
[2019-10-09] MEDS ORDERED: tiZANidine HCl 4 MG TAB PO PRN (20:15)
[2019-10-09] MEDS: Melatonin 3 MG TAB PO SCH (20:39)
[2019-10-10] MEDS: Aspirin 325 mg Enteric Coated Tablet PO SCH (07:41)
[2019-10-10] MEDS: Enoxaparin Sodium 30 MG/0.3 ML SYRINGE SC SCH ×2 (07:41→20:39)
[2019-10-10] MEDS: Multivit, Therapeutic 1 TAB PO SCH (07:41)
[2019-10-10] MEDS: glipiZIDE 5 MG TAB PO SCH ×2 (07:41→17:13)
[2019-10-10] MEDS: metFORMIN 500 MG TAB PO SCH ×2 (07:42→17:14)
[2019-10-10] MEDS: Nitroglycerin 2% Ointment 1 INCH/1 GM Packet TOP SCH ×2 (07:43→20:38)
[2019-10-10] MEDS ORDERED: Docusate 100 MG CAP PO PRN (08:31)
--- NOTE | 2019-10-10 08:31 | PDOC.CPN ---
- Subjective Date: 10/10/19 Time: 08:00 Interval history: Ms. Rob is feeling well today. She denies any chest pain or SOB. Only complaint is constipation, states her last BM was 4 days ago, is passing gas. Plan is for CABG tomorrow, all questions asked were answered. No overnight events on telemetry. - Review of Systems Gastrointestinal: reports: constipation - Objective Allergies/Adverse Reactions: Allergies Allergy/AdvReac Type Severity Reaction Status Date / Time iodine Allergy Hives Verified 10/07/19 14:49 Visit Medications: Current Medications Acetaminophen/Codeine Phosphate (Tylenol #3) 1 tab PO Q4H PRN PRN Reason: Mild Pain (1-3) Stop: 10/11/19 08:59 Last Admin: 10/10/19 07:42 Dose: 1 tab Acetaminophen/Codeine Phosphate (Tylenol #3) 2 tab PO Q4H PRN PRN Reason: Moderate Pain (4-6) Stop: 10/11/19 08:59 Aspirin (Ecotrin) 325 mg PO DAILY [facility] Last Admin: 10/10/19 07:41 Dose: 325 mg Dextrose/Water (Dextrose 50%) 25 gm IVP PRN PRN PRN Reason: HYPOGLYCEMIA PROTOCOL Diazepam (Valium) 5 mg PO HSPRN PRN PRN Reason: Insomnia Stop: 10/11/19 08:59 Enoxaparin Sodium (Lovenox) 30 mg SC 0900,2100 [facility] Last Admin: 10/10/19 07:41 Dose: 30 mg Glipizide (Glucotrol) 10 mg PO BID-AC [facility] Last Admin: 10/10/19 07:41 Dose: 10 mg Glucagon (Glucagon) 1 mg IM PRN PRN PRN Reason: HYPOGLYCEMIA PROTOCOL Cefazolin Sodium/Dextrose 2 gm (/ Device) 50 mls @ 100 mls/hr IVPB ONCALL-OR [facility] Stop: 10/11/19 18:00 Dextrose/Water (D5w) 1,000 mls @ 0 mls/hr IV INF PRN PRN Reason: HYPOGLYCEMIA PROTOCOL Insulin Human Lispro (Humalog) 0 units SC .MILD SLIDING SCALE PRN; Protocol PRN Reason: MILD SLIDING SCALE Last Admin: 10/09/19 11:41 Dose: 2 unit Melatonin (Melatonin) 9 mg PO HS [facility] Last Admin: 10/09/19 20:39 Dose: 9 mg Metformin HCl (Glucophage) 500 mg PO BID-WM [facility] Last Admin: 10/10/19 07:42 Dose: 500 mg Miscellaneous Information (Communication Order-Pharmacy) 1 each FS ONE [facility] Stop: 10/11/19 12:00 Multivitamins (Theragran) 1 tab PO DAILY [facility] Last Admin: 10/10/19 07:41 Dose: 1 tab Nitroglycerin (Nitrostat) 0.4 mg SL Q5MIN PRN PRN Reason: Chest Pain Stop: 10/11/19 08:59 Nitroglycerin (Nitro-Bid 2% Ointment) 1 inch TOP BID [facility] Last Admin: 10/10/19 07:43 Dose: 1 inch Sodium Chloride (Flush - Normal Saline) 10 ml IVF PRN PRN PRN Reason: Saline Flush Stop: 10/11/19 08:59 Sodium Chloride (Flush - Normal Saline) 10 ml IVF Q12HR AMBER Stop: 10/11/19 08:59 Last Admin: 10/10/19 07:44 Dose: 10 ml Tizanidine HCl (Zanaflex) 4 mg PO TIDPRN PRN PRN Reason: Muscle Spasm Tramadol HCl (Ultram) 50 mg PO Q6H PRN PRN Reason: Pain Stop: 10/11/19 08:59 Vital Signs & Weight: Vital Signs Temp Pulse Resp BP BP Pulse Ox 10/10/19 03:53 97.8 F 67 21 H 117/61 96 10/09/19 23:24 54 L 134/61 Weight 186 lb 6.4 oz - Quality Measures Condition: Coronary Artery Disease CV meds: ASA: Yes - Physical Exam HEENT: mucus membranes moist, normocephaly Neck: supple neck, no JVD/HJR, no bruit Cardiac: regular rate and rhythm, no murmur Lungs: clear to auscultation, normal breath sounds, no wheeze, rales, rhonchi Neuro: negative: cranial nerve 2-12 intact, grossly intact, motor function intact, sensory function intact, negative rhomberg, coordination normal, no lateralizing findings, numbness, tingling, weakness, resting tremor, essential tremor, right babinski reflex, left babinski reflex, other Abdomen: unremarkable, active bowel sounds, soft Extremities: no edema Skin: clear Musculoskeletal: normal range of motion - Telemetry Sinus rhythms and dysrhythmias: sinus bradycardia (< 50 bpm) (SR/SB 50s-60s) - Assessment/Plan Assessment/Plan: Assessment: 1.3V CAD 2.Type II DM 3.Constipation Plan: CABG in am. Glucose initially elevated with PO/IV glucocorticoids for iodine allergy, improving. Add Colace PRN.
[2019-10-10] MEDS: HumaLOG 300 UNITS/3 ML VIAL SC PRN (12:10)
[2019-10-10] MEDS ORDERED: Milk Of Magnesia 30 ML UDCUP PO SCH (14:30)
[2019-10-10] MEDS: Melatonin 3 MG TAB PO SCH (20:38)
[2019-10-11] MEDS ORDERED: Sodium Bicarb 50 MEQ/50 ML Abboject 8.4% SYRINGE ONE (09:17)
[2019-10-11] MEDS ORDERED: Rocuronium Bromide 10 MG/ML (10ML VIAL) ONE (09:17)
[2019-10-11] MEDS ORDERED: Aminocaproic Acid 5 GM/20 ML VIAL ONE (09:17)
[2019-10-11] MEDS ORDERED: Heparin 5,000 UNITS/ML VIAL ONE (09:17)
[2019-10-11] MEDS ORDERED: Magnesium Sulfate 1 GM/2 ML VIAL ONE (09:17)
[2019-10-11] MEDS ORDERED: Lidocaine 1% PF 5 ML VIAL ONE (09:17)
[2019-10-11] MEDS ORDERED: Papaverine 60 MG/2 ML VIAL ONE (09:17)
[2019-10-11] MEDS ORDERED: Thrombin 5000 UNITS/5 ML VIAL ONE (09:17)
[2019-10-11] MEDS ORDERED: Potassium Chloride 60 MEQ/30 ML VIAL ONE (09:17)
[2019-10-11] MEDS ORDERED: Calcium Chloride 1 GM/10 ML Abboject SYRINGE ONE (09:17)
[2019-10-11] MEDS ORDERED: Lidocaine 2% PF 5 ML VIAL ONE (09:17)
[2019-10-11] MEDS ORDERED: Protamine Sulfate 250 MG/25 ML VIAL ONE (09:17)
[2019-10-11] MEDS ORDERED: Vecuronium 10 MG VIAL ONE (09:17)
[2019-10-11] MEDS ORDERED: Nitroglycerin 50 MG/250 ML BOT ONE (09:17)
[2019-10-11] MEDS ORDERED: Heparin 30,000 units/30 ml VIAL ONE (09:17)
[2019-10-11] MEDS ORDERED: PROPOFOL 200 MG/20 ML VIAL ONE (09:17)
[2019-10-11] MEDS ORDERED: Cardioplegic Soln 1,000 ML BAG ONE (09:17)
[2019-10-11] MEDS: Nitroglycerin 2% Ointment 1 INCH/1 GM Packet TOP SCH (09:18)
[2019-10-11] MEDS: glipiZIDE 5 MG TAB PO SCH (09:27)
[2019-10-11] MEDS: Aspirin 325 mg Enteric Coated Tablet PO SCH (09:28)
[2019-10-11] MEDS: Enoxaparin Sodium 30 MG/0.3 ML SYRINGE SC SCH (09:28)
[2019-10-11] MEDS: metFORMIN 500 MG TAB PO SCH (09:28)
[2019-10-11] MEDS: Multivit, Therapeutic 1 TAB PO SCH (09:28)
[2019-10-11] MEDS ORDERED: CEFAZOLIN 2 GM in Premix Bag 1 BAG IVPB SCH (10:00)
[2019-10-11] MEDS ORDERED: Albumin 5% 500 ML ONE (10:27)
[2019-10-11] MEDS ORDERED: Bupivacaine PF 0.5% 30 ML VIAL ONE (10:27)
[2019-10-11] MEDS ORDERED: EPINEPHrine 1 MG/ML AMP ONE (10:27)
[2019-10-11] MEDS ORDERED: Heparin 10,000 UNITS/1 ML VIAL 30,000 UNITS in Sodium Chloride 0.9% 1,000 ML FS SCH (10:45)
[2019-10-11] MEDS ORDERED: Norepinephrine 4 MG/4 ML VIAL ONE (11:07)
[2019-10-11] MEDS ORDERED: Nitroglycerin 50 MG/250 ML BOT 250 ML ONE (11:07)
[2019-10-11] MEDS ORDERED: Fentanyl 100 MCG/2 ML VIAL ONE (11:08)
[2019-10-11] MEDS ORDERED: Midazolam HCl 2 mg/2 ml Vial ONE (11:08)
[2019-10-11] MEDS ORDERED: Insulin Regular 300 UNITS/3 ML VIAL ONE (14:25)
[2019-10-11] MEDS ORDERED: Guaifenesin DM 100-10/5 ML UDCUP PO PRN (15:38)
[2019-10-11] MEDS ORDERED: Mag-Al 1200 mg/1200 mg/30 ML UDCUP PO PRN (15:38)
[2019-10-11] MEDS ORDERED: Bisacodyl 5 MG TAB PO PRN (15:38)
[2019-10-11] MEDS ORDERED: D5 1/2 NS w/20 mEq KCL 1,000 ML IV SCH (15:38)
[2019-10-11] MEDS ORDERED: Hetastarch 6% 500 ML 500 ML IVPB PRN (15:38)
[2019-10-11] MEDS ORDERED: Norepinephrine 8 MG/0.9% NS 250 ML IVPB PRN (15:38)
[2019-10-11] MEDS ORDERED: Magnesium 2 GM/50 ML 2 GM in Premix Bag 1 BAG IVPB SCH (15:38)
[2019-10-11] MEDS ORDERED: Fentanyl 100 MCG/2 ML VIAL SLOW IVP PRN ×2 (15:38)
[2019-10-11] MEDS ORDERED: Potassium Chloride 20 MEQ/100 ML PREMIX BAG IVPB PRN (15:38)
[2019-10-11] MEDS ORDERED: Morphine 2 MG/ML SYRINGE SLOW IVP PRN (15:38)
[2019-10-11] MEDS ORDERED: Bisacodyl 10 MG SUPP PR PRN (15:38)
[2019-10-11] MEDS ORDERED: hydrALAZINE 20 MG/ML VIAL SLOW IVP PRN (15:38)
[2019-10-11] MEDS ORDERED: Nitroglycerin 50 MG/250 ML BOT 250 ML IVPB PRN (15:38)
[2019-10-11] MEDS ORDERED: Acetaminophen 325 MG TAB PO PRN (15:38)
[2019-10-11] MEDS ORDERED: Post-Op Insulin Drip Protocol IVPB ONE (15:38)
[2019-10-11] MEDS ORDERED: HYDROcodone/Acetaminophen 5/325 mg Tablet PO PRN ×2 (15:38)
[2019-10-11] MEDS ORDERED: Ondansetron PF 4 MG/2 ML Vial IVP PRN (15:38)
[2019-10-11] MEDS ORDERED: Promethazine HCl 25 MG/ML VIAL IM PRN (15:38)
[2019-10-11 15:44] LABS: ALT (SGPT) 120 U/L (8-55); AST (SGOT) 54 U/L (5-34); Albumin 2.8 g/dL (3.4-4.8); Alkaline Phosphatase 45 U/L (40-110); Bilirubin, Direct 0.4 mg/dL (0.1-0.3); Bilirubin, Total 0.8 mg/dL (0.2-1.2); Protein, Total 4.2 g/dL (6.0-8.3)
[2019-10-11] MEDS ORDERED: Insulin Regular 300 UNITS/3 ML VIAL SC PRN (15:47)
[2019-10-11] MEDS ORDERED: Dextrose 50% Abboject 50 ML SYRINGE SLOW IVP PRN (15:47)
[2019-10-11] MEDS ORDERED: Dextrose 5% in Water 1,000 ML IV PRN (15:47)
[2019-10-11] MEDS ORDERED: HUMULIN R 100 UNITS in Sodium Chloride 0.9% 100 ML IVPB SCH (15:47)
[2019-10-11 16:02] LABS: HIV (1/2) Antibody/Antigen Non-Reactive (NonReactive); HIV 1/2 INDEX 0.17 S/CO (<1.00)
[2019-10-11 16:05] LABS: #Eosinphils 0.1 thou/uL (0.0-0.7); #Lymphocytes 0.9 thou/uL (1.20-3.40); #Monocytes 0.5 thou/uL (0.11-0.59); #Neutrophils 8.3 thou/uL (1.40-6.50); %Basophils 0.3 % (0.0-1.0); %Eosinophils 1.2 % (0.0-10.0); %Monocytes 5.1 % (0.0-10.0); %Neutrophils 84.3 % (42.0-75.0); Hemoglobin 10.7 g/dL (12.0-16.0); Mean Corpuscular HGB CONC 33.3 g/dL (32.0-36.0); Mean Corpuscular Hemoglobin 30.9 pg (27.0-31.0); Mean Corpuscular Volume 92.6 fL (78.0-98.0); Mean Platelet Volume 9.6 fL (7.4-10.4); Platelet Count 93 thou/uL (130-400); RBC Distribution Width 12.7 % (11.5-14.5); Red Blood Cell (RBC) Count 3.47 mill/uL (4.20-5.40); White Blood Cell (WBC) Count 9.8 thou/uL (4.8-10.8)
[2019-10-11 16:06] LABS: INR-International Normal Ratio 1.3; PTT 33.2 SEC (22.9-36.1); Prothrombin Time 16.4 SEC (12.0-14.7)
[2019-10-11 16:16] LABS: CO2 Tension 48.4 mmHg (35.0-45.0); Calcium, Ionized 1.09 mmol/L (1.12-1.30); Carboxyhemoglobin (COHb) 0.8 gm% (0.0-3.0); O2 Tension (PaO2) 172.8 mmHg (> 80.0); Potassium - ABG Lab 3.85 mmol/L (3.70-5.30); pH, Arterial 7.35 (7.35-7.45)
[2019-10-11 16:17] LABS: Puncture Site ALINE
[2019-10-11 16:18] LABS: Anion Gap 11 mmol/L (10-20); BUN (Urea Nitrogen) 17 mg/dL (9.8-20.1); Calc. Creatinine Clearance 89 mL/min (70-130); Calcium 7.4 mg/dL (7.8-10.44); Carbon Dioxide 24 mmol/L (23-31); Chloride 108 mmol/L (98-107); Estimated GFR-MDRD 67; Glucose 192 mg/dL (80-115); Potassium 3.8 mmol/L (3.5-5.1); Sodium 139 mmol/L (136-145)
[2019-10-11 16:23] LABS: Platelet Morphology Comment Appears Decreased; RBC Morphology Normal
--- NOTE | 2019-10-11 16:25 | RAD ---
SINGLE VIEW OF THE CHEST: Comparison: 10-08-2019 History: Status post open heart surgery. FINDINGS: Single view of the chest shows an enlarged but stable cardiomediastinal silhouette. The endotracheal tube is seen with its tip between the clavicles. A central venous catheter is seen with its tip in th e superior vena cava. The patient is status post sternotomy. There appears to be a small left pleural effusion. Atelectasis is seen in the left lung base. A left chest tube and mediastinal drain are see n. No pneumothorax is seen. IMPRESSION: 1. Appropriate position of lines and tubes. 2. Left basilar atelectasis and small left pleural effusion. POS: [facility]
[2019-10-11] MEDS: Ketorolac Tromethamine 30 MG/ML VIAL IVP SCH ×2 (17:35→23:09)
--- NOTE | 2019-10-11 17:50 | OP ---
DATE OF PROCEDURE: 10/11/2019 PREOPERATIVE DIAGNOSES: Coronary artery disease/diabetes mellitus. POSTOPERATIVE DIAGNOSES: Coronary artery disease/diabetes mellitus. PROCEDURES PERFORMED: Coronary artery bypass grafting x4: 1. Left internal mammary artery to 2.0 mm mid left anterior descending - good conduit and target. 2. Reverse saphenous vein to 3.0 mm obtuse marginal 1 - good conduit and target. 3. Reverse saphenous vein to 3.0 mm obtuse marginal 2 - good conduit and target. 4. Reverse saphenous vein to 1.5 mm posterior descending artery, good conduit and target. LOSS PREVENTION MANAGER: Vipul Ferrari MD ANESTHESIA: General endotracheal - Isak Rodriguez MD and Timo Nicholas MD. PUMP TIME: 66 minutes. CROSSCLAMP TIME: 38 minutes. LOW CORE TEMPERATURE: 34 degrees Celsius. COLLEGE INSTRUCTOR: Savanna Barreto. DRAINS: 24-[place] chest tubes x2. DRIPS: None. TRANSFUSIONS: None. DESCRIPTION OF PROCEDURE: After consent was obtained, the patient was brought to the operating room and placed in supine position on the operating table. Appropriate central line and monitors were placed, and general endotracheal anesthesia was induced. Chest, abdomen, and legs were prepped and draped in usual sterile fashion. Greater saphenous vein was harvested from the left lower extremity utilizing an endoscopic technique. Skin incisions were used below the knee. Wounds were irrigated and closed in layers. Median sternotomy was performed. Left internal mammary artery was harvested as a pedicle graft. The patient was systemically heparinized. Distal pedicle was divided and infused with papaverine. Thymic fat and pericardium were divided with electrocautery. Pericardial stay sutures were placed. Aortic and atrial cannulation was performed. After adequate heparinization, retrograde prime was performed. The patient was placed on cardiopulmonary bypass. Distal targets were marked. Aortic crossclamp was applied, and antegrade sanguineous cardioplegic arrest was obtained. 1 L of antegrade cold [place] cardioplegia was given. Topical cold solution was used. Reverse saphenous vein was anastomosed to the OM2 in end-to-side fashion with running 7-0 Prolene suture. Anastomosis was tested and was hemostatic. Reverse saphenous vein was anastomosed to the OM1 in end-to-side fashion with running 7-0 Prolene suture. Anastomosis was tested and was hemostatic. Reverse saphenous vein was anastomosed to the PDA in end-to-side fashion with running 7-0 Prolene suture. Mammary artery was brought through a window in the pericardium and anastomosed to the LAD in end-to-side fashion with running 7-0 Prolene suture. On release of mammary clamps, good hooding of anastomosis and good distal flow. Pedicle was secured with interrupted 6-0 Prolene suture. Crossclamp was removed, and partial occluding clamp was placed. Saphenous veins to the OM1 and PDA were anastomosed to the aortic root. Partial occluding clamp was removed, and grafts were deaired. Saphenous vein to the OM2 was anastomosed to the sidewall of the OM1 graft. Anastomoses were inspected for hemostasis, which was good. The patient was warmed and weaned from cardiopulmonary bypass. After resumption of sinus rhythm, good hemodynamics, temperature greater than 36.5, bypass was discontinued. Transfusion was given. Protamine was administered. Decannulation was performed, and pursestring suture secured. 24-[place] chest tubes were placed in the mediastinum x2. After adequate hemostasis had been obtained in the mediastinum, sternum was closed with #7 wire. Sternum was treated with platelet-rich plasma. Wires were twisted and buried. Wounds were irrigated and treated with platelet-poor plasma. A peristernal block was performed with Marcaine mixed with epinephrine and Decadron. Wounds were then closed in layers, and Dermabond was applied to the skin. The patient tolerated the procedure well and was transferred to the intensive care unit in stable, but critical condition. Needle, sponge, and instrument counts were all reported as correct at the end of the procedure. Job ID: [id number]
[2019-10-11] MEDS: Famotidine/PF 20 mg/2ml Vial SLOW IVP SCH (20:28)
[2019-10-11] MEDS: CEFAZOLIN 2 GM in Premix Bag 1 BAG IVPB SCH (20:28)
[2019-10-11] MEDS: Atorvastatin Calcium 20 MG TAB PO SCH (20:37)
[2019-10-11 20:53] LABS: Actual Bicarbonate (HCO3a) 23.6 mEq/L (22-28); CO2 Tension 34.6 mmHg (35.0-45.0); Calcium, Ionized 1.07 mmol/L (1.12-1.30); Carboxyhemoglobin (COHb) 0.3 gm% (0.0-3.0); Hemoglobin (Hb) 11.7 g/dL (12.0-16.0); O2 Tension (PaO2) 168.6 mmHg (> 80.0); Potassium - ABG Lab 4.25 mmol/L (3.70-5.30); pH, Arterial 7.45 (7.35-7.45)
[2019-10-11 20:54] LABS: Puncture Site ALINE
[2019-10-11 21:38] LABS: Hemoglobin 11.2 g/dL (12.0-16.0)
[2019-10-11 21:53] LABS: Potassium 4.1 mmol/L (3.5-5.1)
[2019-10-12] MEDS: CEFAZOLIN 2 GM in Premix Bag 1 BAG IVPB SCH ×2 (03:07→12:03)
[2019-10-12 04:06] LABS: #Lymphocytes 0.8 thou/uL (1.20-3.40); #Monocytes 0.6 thou/uL (0.11-0.59); #Neutrophils 6.7 thou/uL (1.40-6.50); %Basophils 0.1 % (0.0-1.0); %Eosinophils 0.3 % (0.0-10.0); %Lymphocytes 9.4 % (21.0-51.0); %Monocytes 7.6 % (0.0-10.0); %Neutrophils 82.7 % (42.0-75.0); Hemoglobin 10.3 g/dL (12.0-16.0); Mean Corpuscular Hemoglobin 30.8 pg (27.0-31.0); Mean Corpuscular Volume 93.3 fL (78.0-98.0); Mean Platelet Volume 9.5 fL (7.4-10.4); Platelet Count 95 thou/uL (130-400); RBC Distribution Width 12.8 % (11.5-14.5); Red Blood Cell (RBC) Count 3.34 mill/uL (4.20-5.40); White Blood Cell (WBC) Count 8.1 thou/uL (4.8-10.8)
[2019-10-12 04:25] LABS: Anion Gap 11 mmol/L (10-20); BUN (Urea Nitrogen) 17 mg/dL (9.8-20.1); Calc. Creatinine Clearance 78 mL/min (70-130); Calcium 7.5 mg/dL (7.8-10.44); Carbon Dioxide 24 mmol/L (23-31); Chloride 109 mmol/L (98-107); Estimated GFR-MDRD 58; Glucose 108 mg/dL (80-115); Potassium 4.3 mmol/L (3.5-5.1); Sodium 140 mmol/L (136-145)
[2019-10-12] MEDS: Ketorolac Tromethamine 30 MG/ML VIAL IVP SCH ×3 (05:03→17:16)
--- NOTE | 2019-10-12 07:23 | RAD ---
SINGLE VIEW CHEST: Date: 10/12/2019 COMPARISON: 10/11/2019. HISTORY: Status post open heart surgery. FINDINGS: Single view of the chest shows an enlarged cardiomediastinal silhouette. The patient is status post s ternotomy. The endotracheal tube has been removed. The central venous catheter is unchanged in positi on. There is a left-sided chest tube and mediastinal drain without evidence of pneumothorax. There ma y be atelectasis in the left lung base and/or a small pleural effusion. IMPRESSION: Stable exam status post extubation. POS: [facility]
[2019-10-12] MEDS ORDERED: Magnesium 2 GM/50 ML 2 GM in Premix Bag 1 BAG IVPB SCH (09:00)
[2019-10-12] MEDS: Aspirin 325 MG TAB PO SCH (09:36)
[2019-10-12] MEDS: Famotidine/PF 20 mg/2ml Vial SLOW IVP SCH (09:36)
[2019-10-12] MEDS ORDERED: Zolpidem Tartrate 5 MG TAB PO PRN (13:56)
[2019-10-12] MEDS ORDERED: Bisacodyl 5 MG TAB PO PRN (13:56)
[2019-10-12] MEDS ORDERED: Bisacodyl 10 MG SUPP PR PRN (13:56)
[2019-10-12] MEDS ORDERED: Artificial Tears 18 DROP/0.9 ML EA EYE PRN (13:56)
[2019-10-12] MEDS ORDERED: Mineral Oil ENEMA PR PRN (13:56)
[2019-10-12] MEDS ORDERED: Ondansetron PF 4 MG/2 ML Vial IVP PRN (13:56)
[2019-10-12] MEDS ORDERED: Guaifenesin DM 100-10/5 ML UDCUP PO PRN (13:56)
[2019-10-12] MEDS ORDERED: diphenhydrAMINE 25 MG CAP PO PRN (13:56)
[2019-10-12] MEDS ORDERED: traMADol HCl 50 MG TAB PO PRN ×2 (13:56)
[2019-10-12] MEDS ORDERED: Milk Of Magnesia 30 ML UDCUP PO PRN (13:56)
[2019-10-12] MEDS ORDERED: Nitroglycerin 0.4 MG TAB (25 Tab Bottle) SL PRN (13:56)
[2019-10-12] MEDS ORDERED: Mag-Al 1200 mg/1200 mg/30 ML UDCUP PO PRN (13:56)
[2019-10-12] MEDS ORDERED: HUMULIN R 100 UNITS in Sodium Chloride 0.9% 100 ML IVPB SCH (14:04)
[2019-10-12] MEDS ORDERED: Dextrose 50% Abboject 50 ML SYRINGE SLOW IVP PRN (14:04)
[2019-10-12] MEDS ORDERED: Dextrose 5% in Water 1,000 ML IV PRN (14:04)
[2019-10-12] MEDS: Insulin Regular 300 UNITS/3 ML VIAL SC PRN ×2 (16:17→20:33)
[2019-10-12] MEDS: glipiZIDE 5 MG TAB PO SCH (16:18)
--- NOTE | 2019-10-12 16:52 | PRG ---
DATE OF SERVICE: 10/12/2019 SUBJECTIVE: Ms. Rob looks great following her coronary artery bypass grafting, no complaints. Not short of breath. No angina. OBJECTIVE: VITAL SIGNS: Blood pressure 103/57, pulse is in the 70s. She was on low-dose Levophed this morning, but is being weaned off. LUNGS: Clear. CARDIAC: Normal S1. Normal S2. ABDOMEN: Soft, nontender. EXTREMITIES: No edema. ASSESSMENT: 1. Status post coronary artery bypass grafting, doing well. 2. Diabetes. PLAN: 1. She is on insulin. 2. Being weaned from Levophed. 3. Aspirin. 4. Beta blockers later once her blood pressure improves. Job ID: [id number]
[2019-10-12] MEDS: Atorvastatin Calcium 20 MG TAB PO SCH (20:33)
[2019-10-12] MEDS: Famotidine 20 MG TAB PO SCH (20:33)
[2019-10-13] MEDS: Melatonin 3 MG TAB PO SCH ×2 (00:01→21:43)
[2019-10-13] MEDS: Ketorolac Tromethamine 30 MG/ML VIAL IVP SCH ×4 (05:33→17:10)
[2019-10-13] MEDS ORDERED: Furosemide 40 MG TAB PO SCH (07:30)
[2019-10-13] MEDS ORDERED: Potassium Chloride 10 MEQ TAB PO SCH (07:30)
[2019-10-13] MEDS: glipiZIDE 5 MG TAB PO SCH ×2 (08:10→17:10)
[2019-10-13] MEDS: Famotidine 20 MG TAB PO SCH ×2 (08:10→21:48)
[2019-10-13] MEDS: Aspirin 325 MG TAB PO SCH (08:10)
--- NOTE | 2019-10-13 09:21 | PRG ---
DATE OF SERVICE: 10/13/2019 SUBJECTIVE: Ms. Rob looks really very good. She is reclining back in the reclining chair now. She said she is feeling good. She has been up and around in the office one more time up and around in her room a bit. OBJECTIVE: VITAL SIGNS: Her blood pressure 118/56, pulse 84. LUNGS: Clear. CARDIAC: Normal S1, normal S2. ABDOMEN: Soft, nontender. EXTREMITIES: No edema. ASSESSMENT: 1. Status post coronary artery bypass grafting for multivessel coronary disease. 2. Diabetes. 3. Hyperlipidemia. PLAN: 1. She is on aspirin. 2. She is on atorvastatin. 3. We will add low-dose beta-blockers. The patient is currently doing well. Job ID: [id number]
[2019-10-13] MEDS: Insulin Regular 300 UNITS/3 ML VIAL SC PRN ×2 (11:31→17:10)
[2019-10-13] MEDS ORDERED: metFORMIN 500 MG TAB PO SCH (21:00)
[2019-10-13] MEDS: Atorvastatin Calcium 20 MG TAB PO SCH (21:44)
[2019-10-14] MEDS: Ketorolac Tromethamine 30 MG/ML VIAL IVP SCH ×2 (00:42→05:45)
--- NOTE | 2019-10-14 06:20 | DIS ---
DATE OF ADMISSION: 10/08/2019 DATE OF DISCHARGE: 10/13/2019 DIAGNOSES: 1. Coronary artery disease. 2. Diabetes mellitus. 3. Hypertension. 4. Dyslipidemia. PROCEDURES: 1. Cardiac catheterization. 2. Coronary artery bypass grafting x4 -. a. Left internal mammary artery to left anterior descending. b. Reverse saphenous vein to obtuse marginal 1, obtuse marginal 2, and posterior descending artery. DESCRIPTION OF HOSPITAL STAY: Ms. Rob was brought into the hospital with resting angina. She underwent cardiac catheterization on 10/07, showing severe three-vessel disease. She underwent cardiac catheterization on 10/09 and underwent coronary artery bypass grafting on 10/10. Postoperatively, she has done remarkably well. At the time of discharge, she is ambulatory, tolerating a regular diet, having good bowel and bladder function. Incisions are clean and dry without evidence of infection. DISCHARGE MEDICATIONS: 1. Aspirin 325 mg daily. 2. Metoprolol 12.5 mg daily. 3. Lipitor 20 mg at bedtime. 4. Glipizide 10 mg b.i.d. 5. Metformin ER 750 mg at bedtime. 6. Tizanidine 4 mg t.i.d. p.r.n. 7. Melatonin 10 mg at bedtime. 8. Tramadol 50 to 100 mg q.6 p.r.n. pain. FOLLOWUP: Follow up is with me in [address] Guillaume in a month. Job ID: [id number] MTDD
[2019-10-14] MEDS ORDERED: metFORMIN 500 MG TAB PO SCH (08:00)
[2019-10-14] MEDS ORDERED: metFORMIN XR 500 MG TAB PO SCH ×2 (08:00→17:00)
[2019-10-14 08:12] VITALS: TEMP 98.1
[2019-10-14] MEDS: Aspirin 325 MG TAB PO SCH (09:02)
[2019-10-14] MEDS: Famotidine 20 MG TAB PO SCH (09:03)
[2019-10-14] MEDS: glipiZIDE 5 MG TAB PO SCH (09:04)
--- NOTE | 2019-10-14 09:10 | PRG ---
DATE OF SERVICE: 10/14/2019 SUBJECTIVE: Ms. Rob is doing well. No complaints. She is sitting up in a chair. OBJECTIVE: VITAL SIGNS: Blood pressure 118/59, pulse 76 and regular. LUNGS: Clear. CARDIAC: Normal S1, S2. ABDOMEN: Soft and nontender. EXTREMITIES: No edema. ASSESSMENT: 1. Status post bypass surgery, doing well. 2. Diabetes, controlled. PLAN: To be released home to see Dr. Ferrari in a couple of weeks. See me in about a month. Job ID: [id number]
[2019-10-14 11:22] VITALS: BP 123/58
== END 2019-10-14 10:48 | disposition home or self-care (01) | DRG 234 ==
LOC: CCL 06:19 → 2NO 11:20 → CCU 10-11 11:43 → 2NO 10-12 16:41
PROVIDERS: ADMIT Internal Medicine Cardiovascular Disease; ATTEND Internal Medicine Cardiovascular Disease
PROC: 4A023N7 Measurement of Cardiac Sampling and Pressure, Left Heart, Percutaneous Approach (ICD-10-PCS; 2019-10-08)
PROC: B2111ZZ Fluoroscopy of Multiple Coronary Arteries using Low Osmolar Contrast (ICD-10-PCS; 2019-10-08)
PROC: 02100Z9 Bypass Coronary Artery, One Artery from Left Internal Mammary, Open Approach (ICD-10-PCS; principal; 2019-10-11)
PROC: 06BQ4ZZ Excision of Left Saphenous Vein, Percutaneous Endoscopic Approach (ICD-10-PCS; 2019-10-11)
PROC: 021209W Bypass Coronary Artery, Three Arteries from Aorta with Autologous Venous Tissue, Open Approach (ICD-10-PCS; 2019-10-11)
PROC: 5A1221Z Performance of Cardiac Output, Continuous (ICD-10-PCS; 2019-10-11)
DX: I25.110 Atherosclerotic heart disease of native coronary artery with unstable angina pectoris (principal); R94.39 Abnormal result of other cardiovascular function study; I10 Essential (primary) hypertension; R94.5 Abnormal results of liver function studies; K21.9 Gastro-esophageal reflux disease without esophagitis; E11.40 Type 2 diabetes mellitus with diabetic neuropathy, unspecified; E78.5 Hyperlipidemia, unspecified; K59.00 Constipation, unspecified; Z90.710 Acquired absence of both cervix and uterus; Z79.82 Long term (current) use of aspirin; Z79.02 Long term (current) use of antithrombotics/antiplatelets
CPT/HCPCS: 36415; 36416; 36430; 71045; 76942; 80048; 80076; 82805; 85025; 85610; 85730; 86850; 86900; 86901; 87389; 93005; 93010; 93458; 93798; 94002; 94150; 99152; 99153; C1769; J0171; J0690; J1642; J1644; J1650; J1720; J1815; J1885; J2001; J2250; J2270; J2440; J2704; J2720; J3010; J3370; J3475; J3480; J3490; P9045; Q0163; Q9967; S0017; S0020; S0028

== ENCOUNTER 2019-11-12 20:07 | Emergency (ER) | payer MEDICARE ==
[~2019-11-12 20:07] MED LIST: Iopamidol 370 76% 100 ML VIAL ONE
[2019-11-12 20:37] LABS: #Eosinphils 0.1 thou/uL (0.0-0.7); #Lymphocytes 0.6 thou/uL (1.20-3.40); #Monocytes 0.5 thou/uL (0.11-0.59); #Neutrophils 8.6 thou/uL (1.40-6.50); %Basophils 0.4 % (0.0-1.0); %Eosinophils 0.9 % (0.0-10.0); %Lymphocytes 6.1 % (21.0-51.0); %Monocytes 5.2 % (0.0-10.0); %Neutrophils 87.5 % (42.0-75.0); Hemoglobin 12.2 g/dL (12.0-16.0); Mean Corpuscular HGB CONC 31.8 g/dL (32.0-36.0); Mean Corpuscular Volume 91.2 fL (78.0-98.0); Mean Platelet Volume 9.6 fL (7.4-10.4); Platelet Count 143 thou/uL (130-400); RBC Distribution Width 13.6 % (11.5-14.5); Red Blood Cell (RBC) Count 4.21 mill/uL (4.20-5.40); White Blood Cell (WBC) Count 9.9 thou/uL (4.8-10.8)
[2019-11-12] MEDS ORDERED: Ketorolac Tromethamine 30 MG/ML VIAL ONE (20:37)
[2019-11-12] MEDS ORDERED: Morphine 4 MG/ML VIAL ONE (20:37)
[2019-11-12 21:01] LABS: ALT (SGPT) 126 U/L (8-55); AST (SGOT) 103 U/L (5-34); Albumin 4.1 g/dL (3.4-4.8); Alkaline Phosphatase 110 U/L (40-110); Anion Gap 17 mmol/L (10-20); BUN (Urea Nitrogen) 15 mg/dL (9.8-20.1); Calc. Creatinine Clearance 0 mL/min (70-130); Calcium 9.6 mg/dL (7.8-10.44); Carbon Dioxide 27 mmol/L (23-31); Chloride 103 mmol/L (98-107); Estimated GFR-MDRD 58; Glucose 127 mg/dL (80-115); Potassium 3.6 mmol/L (3.5-5.1); Protein, Total 7.1 g/dL (6.0-8.3); Sodium 143 mmol/L (136-145)
--- NOTE | 2019-11-12 21:07 | ULT ---
Sonogram right upper quadrant HISTORY: Right upper quadrant pain. FINDINGS: Gallbladder is incompletely distended. No stones are apparent. Common duct is 0.3 cm. Liver unremarkable without focal mass or intrahepatic biliary dilatation. No free fluid. Thinning of the right renal cortex evident. Small amount of fluid partially visualized within the right pleural space. IMPRESSION : No evidence of gallstones or biliary obstruction. Small right pleural effusion.
[2019-11-12] MEDS ORDERED: diphenhydrAMINE 50 MG/ML VIAL ONE (22:09)
[2019-11-12] MEDS ORDERED: Famotidine/PF 20 mg/2ml Vial ONE (22:09)
[2019-11-12] MEDS ORDERED: methylPREDNISolone Sod Succ/PF 125 MG/2 ML VIAL ONE (22:09)
[2019-11-12 22:36] LABS: Bilirubin Negative (Negative); Blood, Urine Negative (Negative); Clarity Clear (Clear); Glucose, Urine (Dipstick) Normal (Negative); Leukocyte Negative Leu/uL (Negative); Nitrite Negative (Negative); Protein, Urine (Dipstick) Negative (Neg-Trace)
--- NOTE | 2019-11-12 23:03 | CT ---
CT abdomen and pelvis with IV contrast HISTORY: Abdominal pain. COMPARISON: 09/23/2019. FINDINGS: Small amount right pleural fluid. Very small amount of pericardial fluid partially visualiz ed. Calcified granulomata of the liver are consistent with healed granulomatous disease. There is calcification throughout the arterial structures. Postoperative changes of the pelvis are ag ain demonstrated. The large well-circumscribed cystic mass centered at the left adnexa is again demonstrated, measuring up to 8.7 cm x 7.6 cm x 5.9 cm greatest diameters. Tiny dependent calcification is unchanged in appearance. No free air or free fluid. No evidence of bowel obstruction. Prominent fatty hypertrophy of the ileocecal valve is more pronounc ed than on the prior study. Appendix is not inflamed. IMPRESSION : Interval development of small right pleural effusion and pericardial effusion. No acute inflammatory process or bowel obstruction evident. Large left adnexal cystic mass is stable. Atherosclerosis.
== END 2019-11-12 23:55 | disposition home or self-care (01) ==
LOC: ERS 20:07
DX: R10.9 Unspecified abdominal pain (principal); R10.816 Epigastric abdominal tenderness; R10.811 Right upper quadrant abdominal tenderness; E11.40 Type 2 diabetes mellitus with diabetic neuropathy, unspecified; E78.5 Hyperlipidemia, unspecified; K21.9 Gastro-esophageal reflux disease without esophagitis; Z79.84 Long term (current) use of oral hypoglycemic drugs; Z79.899 Other long term (current) drug therapy
CPT/HCPCS: 74177; 76705; 80053; 81003; 83690; 84484; 85025; 93005; 96361; 96374; 96375; J1200; J1885; J2270; J2930; Q9967; S0028

== ENCOUNTER 2020-03-09 08:14 | Outpatient (CLI) | payer MEDICARE, OTHER ==
[2020-03-09 14:41] LABS: Hemoglobin 13.5 g/dL (12.0-16.0); Mean Corpuscular HGB CONC 31.6 g/dL (32.0-36.0); Mean Corpuscular Hemoglobin 27.9 pg (27.0-31.0); Mean Corpuscular Volume 88.5 fL (78.0-98.0); Mean Platelet Volume 11.3 fL (7.4-10.4); Platelet Count 121 thou/uL (130-400); RBC Distribution Width 16.2 % (11.5-14.5); Red Blood Cell (RBC) Count 4.84 mill/uL (4.20-5.40); White Blood Cell (WBC) Count 5.9 thou/uL (4.8-10.8)
[2020-03-09 15:33] LABS: Anion Gap 15 mmol/L (10-20); BUN (Urea Nitrogen) 19 mg/dL (9.8-20.1); Calc. Creatinine Clearance 0 mL/min (70-130); Calcium 9.2 mg/dL (7.8-10.44); Carbon Dioxide 24 mmol/L (23-31); Chloride 105 mmol/L (98-107); Estimated GFR-MDRD 53; Glucose 173 mg/dL (80-115); Sodium 140 mmol/L (136-145)
[2020-03-10 13:51] LABS: SARS-CoV-2 MS2 Positive; SARS-CoV-2 N Gene Negative; SARS-CoV-2 S Gene Negative; SARS-CoV-2 by NAA Not Detected (NotDetected); SARS-CoV-2 orf1ab Negative
== END 2020-03-09 08:15 | disposition home or self-care (01) ==
LOC: LABBT 08:14
PROVIDERS: ATTEND Student in an Organized Health Care Education/Training Program
DX: Z01.818 Encounter for other preprocedural examination (principal); I25.10 Atherosclerotic heart disease of native coronary artery without angina pectoris; N89.8 Other specified noninflammatory disorders of vagina; Z20.828 Contact with and (suspected) exposure to other viral communicable diseases
CPT/HCPCS: 80048; 85027; 86850; 86900; 86901; 93005; U0003; 87635; 93010

== ENCOUNTER 2020-03-14 08:01 | Day surgery (SDC) | payer MEDICARE ==
[2020-03-09 09:43] VITALS: BMI 28.6
[2020-03-14] MEDS ORDERED: Gabapentin 300 MG CAP ONE (08:39)
[2020-03-14] MEDS ORDERED: CeleCOXIB 100 MG CAP ONE (08:39)
[2020-03-14] MEDS ORDERED: Famotidine/PF 20 mg/2ml Vial ONE (09:23)
[2020-03-14] MEDS ORDERED: Bupivacaine PF 0.5% 30 ML VIAL ONE (09:41)
[2020-03-14] MEDS ORDERED: Lidocaine 1% w/Epinephrine 1:100K 20 ML VIAL ONE (09:41)
[2020-03-14] MEDS ORDERED: Fentanyl 250 MCG/5 ML VIAL ONE (09:52)
[2020-03-14] MEDS ORDERED: Midazolam HCl 2 mg/2 ml Vial ONE (09:52)
[2020-03-14] MEDS ORDERED: PHENYLEPHRINE-NS 100 MCG/ML 10 ML SYRINGE ONE (10:09)
[2020-03-14] MEDS ORDERED: Glycopyrrolate 0.2 MG/ML 5 ML SYRINGE ONE (10:09)
[2020-03-14] MEDS ORDERED: Ketorolac Tromethamine 30 MG/ML VIAL ONE (10:09)
[2020-03-14] MEDS ORDERED: EPHEDRINE 25 MG/5 ML SYRINGE ONE (10:09)
[2020-03-14] MEDS ORDERED: Dexamethasone 20 MG/5 ML VIAL ONE (10:09)
[2020-03-14] MEDS ORDERED: Rocuronium Bromide 10 MG/ML (10ML VIAL) ONE (10:09)
[2020-03-14] MEDS ORDERED: PROPOFOL 200 MG/20 ML VIAL ONE (10:09)
[2020-03-14] MEDS ORDERED: Lidocaine 1% PF 5 ML VIAL ONE (10:09)
[2020-03-14] MEDS ORDERED: Ondansetron PF 4 MG/2 ML Vial ONE (10:09)
[2020-03-14] MEDS ORDERED: Fentanyl 100 MCG/2 ML VIAL ONE (12:53)
--- NOTE | 2020-03-15 13:26 | OP ---
DATE OF PROCEDURE: 03/14/2020 PREOPERATIVE DIAGNOSIS: Left adnexal mass. 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 PROCEDURES: Robotic-assisted bilateral salpingo-oophorectomy, extensive lysis of adhesions, pelvic washings. ANESTHESIA: General endotracheal. DRYWALL APPLICATOR: Camilla Ambriz PA-C ESTIMATED BLOOD LOSS: 30 mL. FLUIDS: IVF 1 L crystalloid. URINE OUTPUT: 175 mL of clear urine. PATHOLOGY: 1. Bilateral ovaries and fallopian tubes. 2. Pelvic washings. COMPLICATIONS: None. DRAINS: None. FINDINGS: A large left adnexal cyst, positive spillage of fluid into the abdomen during the case that was serous. The right ovary and fallopian tube were within normal limits, upon entry into the abdomen, there were dense adhesions of the omentum to the anterior abdominal wall, the colon to the anterior abdominal wall, the colon to bilateral ovaries and bilateral ovaries adherent to pelvic sidewall in the vaginal cuff. Lysis of adhesions was performed for 60 minutes. Concluding the procedure, there was excellent hemostasis and bilateral ureters were noted in the pelvic sidewall and were traced down to where they dove below the uterine artery. DESCRIPTION OF PROCEDURE: Patient was taken to the operating room, where general anesthesia was obtained without difficulty. Patient was prepped and draped in a sterile fashion in the dorsal lithotomy position. A Fisher catheter was placed in the bladder. A sponge stick was placed in the vagina. Legs were placed in low lithotomy. Attention was turned to the abdomen. Patient had a previous midline incision from and hysterectomy. A mixture of 0.5% Marcaine with epinephrine and 1% lidocaine plain was infiltrated into the superior aspect of the umbilicus. The umbilicus was then grasped with two Gunjan clamps. An incision was made with a knife approximately 3 cm. The subcutaneous tissue was grasped with Gunjan clamps and the fascia was dissected off the subcutaneous tissue with Mcbride scissors. The fascia was sharply incised with the Mcbride scissors and extended to 3 cm. The Mini Robert was placed into the incision and a 14 cm applied medical bag was placed into the upper abdomen that was cinched up with Vicryl ties. The meningeal point was affixed on top of the Mini Robert and a 12 mm trocar was placed into this GelPOINT. Pneumoperitoneum was obtained. The robotic camera was then inserted into the abdomen and immediately noting the dense adhesions along the anterior abdominal wall up to the level of just below the umbilicus. Immediately from the umbilicus, there were omental adhesions, but further down in the pelvis, colonic adhesions to the anterior abdominal wall were noted. Visualization of the right lower quadrants area was adequate in order to place ports. An 8 mm robotic trocars were placed under direct visualization in the right and left lower quadrants after infiltrating with anesthetic mixture. The right upper quadrant 11 mm ortho assistant port was also placed under direct visualization after infiltrating with anesthetic. Deep Trendelenburg was obtained. The robot was then docked. The right robotic arm contained monopolar scissors. Left robotic arm contained a fenestrated bipolar. The omental adhesions in the anterior abdominal wall were then taken down carefully layering out to ensure no bowel was present and achieving hemostasis with the fenestrated. These were sharply incised with the scissors and cautery. Once the colon adhesions to the anterior abdominal wall were met, these were somewhat filmy and easily layered out somewhat and incised when a clear window was noted staying away from the bowel as well as staying away from vital structures within the anterior abdominal wall or possibly the bladder. Once the colon was taken down, there was further omental adhesions down to the pelvic sidewalls and the bladder that was taken down. The ovaries were able to be identified at that time, however, these were stuck down in the pelvis. The left adnexal mass was noted. At that time, pelvic washings were taken and sent for final cytology. The right ovary was able to be freed up off the pelvic sidewall. There did have some colon adhesions that were filmy and able to be incised sharply without extensive dissection. The right ovary was adherent to the pelvic sidewall. IP ligament was identified. The ureter was also noted at the pelvic brim on the right side. The peritoneum was incised laterally and parallel to the IP ligament in order to dissect out the IP and further dissect the ovary off the pelvic sidewall that was adherent overlying the ovarian fossa as well as the course of the ureter. The IP ligament was then dissected out. A window was made underneath the IP ligament at the pelvic brim and the IP ligament was cauterized multiple times and then incised. At that point, this pedicle was able to be tented up on and peritoneum was gently dissected off the underlying structures and the retroperitoneum, including the ureter and careful dissection was taken to ensure no damage to the ureter or thermal damage. Once the ovary was completely dissected off the pelvic sidewall, this was placed into the pelvis. The left ovary was then approached. This ovary had dense adhesions of the colon to the ovary as well as to the pelvic sidewall. These adhesions were carefully incised and the area over the IP ligament was freed up from the colon and the peritoneum was incised laterally to the IP ligament and a window was made underneath the IP ligament in order to secure the blood supply. The IP ligament was then cauterized multiple times and incised and then the peritoneum was dissected off the ovary carefully. Some of it peeled away easily. Some of it was more densely adherent from the peritoneum on the lateral pelvic sidewall and required incision. During this dissection off the pelvic sidewall, there was a puncture in the cyst and the serous fluid spilled. This was immediately suctioned and the suction credentialing assistant was placed into the cyst at that time to suction out the remainder of the fluid. Once the ovary had been freed from the majority of the pelvic side wall, this allowed more traction to be placed on the ovary adherent to the colon and allowed for more effective dissection ensuring that the entirety of the ovarian tissue was removed. However, ensuring the colon was not injured, careful incision was made on the ovarian adhesions with the scissors and traction-countertraction did allow for planes to develop and the dissection to be successful. Once the ovaries were completely freed from the colon and the vaginal cuff and pelvic sidewall, the bag was brought down into the pelvis and both ovaries and fallopian tubes were placed into the bag and the bag was then brought out of the Mini GelPOINT. There was not an excessive amount of oozing during the case. The ureters were then visualized bilaterally and noted to be vermiculating in the pelvic sidewall. Low pressure check was performed and the pelvis was copiously irrigated and suctioned. Hemostasis was noted to be excellent. At that time, the robot was undocked and the bag was brought out of the Mini Robert intact and all ports and instruments removed out of the abdomen. The fascia of the umbilicus was closed with a 0 PDS suture in a running fashion. The skin was closed with a 4-0 Monocryl in a subcuticular fashion. Dermabond was applied. The sponge stick was removed out of the vagina. Patient tolerated the procedure well. Sponge, lap, and needle counts correct x2. Patient was taken to recovery room in stable condition. As previously noted, lysis of adhesions was carried out during this case for 60 minutes, increasing the complexity of the case. Job ID: [id number]
== END 2020-03-14 14:18 | disposition home or self-care (01) ==
LOC: SDC 08:01
PROVIDERS: ATTEND Student in an Organized Health Care Education/Training Program
PROC: 0UT24ZZ Resection of Bilateral Ovaries, Percutaneous Endoscopic Approach (ICD-10-PCS; principal; 2020-03-14)
PROC: 0UT74ZZ Resection of Bilateral Fallopian Tubes, Percutaneous Endoscopic Approach (ICD-10-PCS; 2020-03-14)
DX: N83.201 Unspecified ovarian cyst, right side (principal); N83.202 Unspecified ovarian cyst, left side; Z79.82 Long term (current) use of aspirin; Z79.84 Long term (current) use of oral hypoglycemic drugs; Z79.899 Other long term (current) drug therapy; Z88.8 Allergy status to other drugs, medicaments and biological substances; Z95.1 Presence of aortocoronary bypass graft
CPT/HCPCS: 88112; 88305; J0690; J1100; J1885; J2250; J2405; J2704; J3010; S0020; S0028

== ENCOUNTER 2020-10-18 19:30 | Emergency (ER) | payer MEDICARE | END 2020-10-18 21:59 | disposition left against medical advice (07) | LOC: ERS 19:30 | DX: Z53.21 Procedure and treatment not carried out due to patient leaving prior to being seen by health care provider (principal) ==

== ENCOUNTER 2022-02-26 12:57 | Outpatient (CLI) | payer OTHER | END 2022-02-26 12:58 | disposition home or self-care (01) | LOC: BICRAD 12:57 | PROVIDERS: ATTEND Physician Assistant | DX: M54.50 Low back pain, unspecified (principal); M47.816 Spondylosis without myelopathy or radiculopathy, lumbar region | CPT/HCPCS: 72100 ==

== ENCOUNTER 2022-09-04 18:12 | Observation (INO) | payer MEDICARE, OTHER, SELFPAY ==
[~2022-09-04 18:12] MED LIST changes: -Iopamidol 370 76% 100 ML VIAL ONE; +Iopamidol-370 76% 500 ML 1 ML ONE
[2022-09-04 19:00] LABS: #Basophils 0.1 thou/uL (0.0-0.2); #Eosinphils 0.2 thou/uL (0.0-0.7); #Lymphocytes 1.9 thou/uL (1.20-3.40); #Monocytes 0.5 thou/uL (0.11-0.59); #Neutrophils 5.8 thou/uL (1.40-6.50); %Basophils 0.6 % (0.0-1.0); %Eosinophils 2.3 % (0.0-10.0); %Lymphocytes 22.3 % (21.0-51.0); %Monocytes 6.1 % (0.0-10.0); %Neutrophils 68.7 % (42.0-75.0); Hemoglobin 13.7 g/dL (12.0-16.0); Mean Corpuscular HGB CONC 32.9 g/dL (32.0-36.0); Mean Corpuscular Hemoglobin 30.6 pg (27.0-31.0); Mean Platelet Volume 9.1 fL (7.4-10.4); Platelet Count 169 10x3/uL (130-400); RBC Distribution Width 13.7 % (11.5-14.5); Red Blood Cell (RBC) Count 4.48 mill/uL (4.20-5.40); White Blood Cell (WBC) Count 8.5 10x3/uL (4.8-10.8)
[2022-09-04 19:19] LABS: ALT (SGPT) 25 U/L (8-55); AST (SGOT) 21 U/L (5-34); Albumin 4.2 g/dL (3.4-4.8); Alkaline Phosphatase 76 U/L (40-110); Anion Gap 17 mmol/L (10-20); BUN (Urea Nitrogen) 22 mg/dL (9.8-20.1); Bilirubin, Total 0.7 mg/dL (0.2-1.2); Calc. Creatinine Clearance 0 mL/min (70-130); Calcium 9.8 mg/dL (7.8-10.44); Carbon Dioxide 20 mmol/L (23-31); Chloride 107 mmol/L (98-107); Estimated GFR 61; Globulin 3.3 g/dL (2.4-3.5); Glucose 73 mg/dL (80-115); Potassium 3.8 mmol/L (3.5-5.1); Protein, Total 7.5 g/dL (5.8-8.1); Sodium 140 mmol/L (136-145)
[2022-09-04] MEDS ORDERED: diphenhydrAMINE 50 MG/ML VIAL ONE (20:01)
[2022-09-04] MEDS ORDERED: Famotidine/PF 20 mg/2ml Vial ONE (20:01)
[2022-09-04] MEDS ORDERED: methylPREDNISolone Sod Succ 40 MG VIAL ONE (20:01)
[2022-09-04 22:15] LABS: Bilirubin Negative (Negative); Blood, Urine Negative (Negative); Clarity Clear (Clear); Glucose, Urine (Dipstick) >=1000 mg/dL (Negative); Ketone, Urine Negative (Negative); Leukocyte Negative Leu/uL (Negative); Nitrite Negative (Negative); Protein, Urine (Dipstick) Negative (Neg-Trace); Specific Gravity, Urine 1.025 (1.002-1.036); Urobilinogen Normal mg/dL (Less than 2)
[2022-09-04] MEDS ORDERED: Nitroglycerin 2% Ointment 1 INCH/1 GM Packet ONE (22:25)
[2022-09-04] MEDS ORDERED: Aspirin Chewable 81 MG TAB ONE (22:25)
[2022-09-04] MEDS ORDERED: Nitroglycerin 0.4 MG TAB (25 Tab Bottle) SL PRN (22:48)
[2022-09-04] MEDS ORDERED: Acetaminophen 325 MG TAB PO PRN (22:48)
[2022-09-04] MEDS ORDERED: Ondansetron PF 4 MG/2 ML Vial IVP PRN (22:48)
[2022-09-04] MEDS ORDERED: hydrALAZINE 20 MG/ML VIAL SLOW IVP PRN (22:48)
[2022-09-04] MEDS ORDERED: Acetaminophen 650 MG Suppository PR PRN (22:48)
[2022-09-04] MEDS ORDERED: Ondansetron ODT 4 MG TAB PO PRN (22:48)
[2022-09-04] MEDS ORDERED: Dextrose 50% Abboject 50 ML SYRINGE SLOW IVP PRN (22:51)
[2022-09-04] MEDS ORDERED: Dextrose 5% in Water 1,000 ML IV PRN (22:51)
[2022-09-04] MEDS ORDERED: HumaLOG 300 UNITS/3 ML VIAL SC PRN ×2 (22:51)
[2022-09-04 23:24] LABS: Troponin I Less than 0.010 ng/mL (< 0.028)
[2022-09-05 00:32] VITALS: BMI 29.5
[2022-09-05 01:56] LABS: Troponin I Less than 0.010 ng/mL (< 0.028)
[2022-09-05] MEDS ORDERED: Melatonin 3 MG TAB PO PRN (02:36)
[2022-09-05 04:52] LABS: #Lymphocytes 0.6 thou/uL (1.20-3.40); #Monocytes 0.1 thou/uL (0.11-0.59); %Basophils 0.2 % (0.0-1.0); %Eosinophils 0.3 % (0.0-10.0); %Lymphocytes 8.3 % (21.0-51.0); %Monocytes 1.4 % (0.0-10.0); %Neutrophils 89.8 % (42.0-75.0); Hemoglobin 12.7 g/dL (12.0-16.0); Mean Corpuscular HGB CONC 33.3 g/dL (32.0-36.0); Mean Corpuscular Hemoglobin 30.7 pg (27.0-31.0); Mean Corpuscular Volume 92.2 fl (78.0-98.0); Mean Platelet Volume 9.4 fL (7.4-10.4); Platelet Count 132 10x3/uL (130-400); RBC Distribution Width 13.7 % (11.5-14.5); Red Blood Cell (RBC) Count 4.14 mill/uL (4.20-5.40); White Blood Cell (WBC) Count 6.6 10x3/uL (4.8-10.8)
[2022-09-05 05:19] LABS: Anion Gap 15 mmol/L (10-20); BUN (Urea Nitrogen) 22 mg/dL (9.8-20.1); Calc. Creatinine Clearance 73 mL/min (70-130); Calcium 8.9 mg/dL (7.8-10.44); Carbon Dioxide 21 mmol/L (23-31); Cardiac Risk 2.9 (Less than 4.5); Chloride 105 mmol/L (98-107); Cholesterol 89 mg/dl (< 200 Desired); Estimated GFR 66; Glucose 241 mg/dL (80-115); HDL Cholesterol 31 mg/dL (>60 Neg Risk); LDL Cholesterol, Calculated 41 mg/dL; Potassium 4.3 mmol/L (3.5-5.1); Sodium 137 mmol/L (136-145); Triglycerides 85 mg/dL (Less than 150)
[2022-09-05] MEDS ORDERED: Aspirin Chewable 81 MG TAB PO SCH (09:00)
[2022-09-05] MEDS ORDERED: Amoxicillin/Potassium Clav 875 MG TAB PO SCH ×2 (11:00→21:00)
[2022-09-05] MEDS ORDERED: tiZANidine HCl 4 MG TAB PO PRN (11:04)
[2022-09-05 12:38] VITALS: TEMP 98.2
[2022-09-05 16:09] VITALS: BP 112/58
[2022-09-05] MEDS ORDERED: glipiZIDE 5 MG TAB PO SCH (16:30)
[2022-09-05] MEDS ORDERED: Atorvastatin Calcium 40 MG TAB PO SCH (21:00)
[2022-09-05] MEDS ORDERED: Melatonin 3 MG TAB PO SCH (21:00)
[2022-09-05] MEDS ORDERED: Atorvastatin Calcium 20 MG TAB PO SCH (21:00)
[2022-09-06] MEDS ORDERED: COP PO SCH (09:00)
[2022-09-06] MEDS ORDERED: BOR PO SCH (09:00)
[2022-09-06] MEDS ORDERED: CHOLECALCIFEROL PO SCH (09:00)
[2022-09-06] MEDS ORDERED: MANG PO SCH (09:00)
[2022-09-06] MEDS ORDERED: ZINC PO SCH (09:00)
[2022-09-06] MEDS ORDERED: D3 PO SCH (09:00)
[2022-09-06] MEDS ORDERED: CAL PO SCH (09:00)
[2022-09-06] MEDS ORDERED: Empagliflozin 10 MG TAB PO SCH (09:00)
[2022-09-06] MEDS ORDERED: VIT K2 PO SCH (09:00)
[2022-09-06] MEDS ORDERED: MAG11 PO SCH (09:00)
== END 2022-09-05 16:30 | disposition home or self-care (01) ==
LOC: ERS 18:12 → 2NO 22:27
PROVIDERS: ADMIT Family Medicine; ATTEND Family Medicine
DX: G45.9 Transient cerebral ischemic attack, unspecified (principal); R07.89 Other chest pain; E11.9 Type 2 diabetes mellitus without complications; I10 Essential (primary) hypertension; E78.5 Hyperlipidemia, unspecified; K21.9 Gastro-esophageal reflux disease without esophagitis; M48.12 Ankylosing hyperostosis [Forestier], cervical region; I25.10 Atherosclerotic heart disease of native coronary artery without angina pectoris; E66.9 Obesity, unspecified; Z68.29 Body mass index [BMI] 29.0-29.9, adult; Z79.2 Long term (current) use of antibiotics; Z79.84 Long term (current) use of oral hypoglycemic drugs; Z79.899 Other long term (current) drug therapy; Z91.041 Radiographic dye allergy status; Z95.1 Presence of aortocoronary bypass graft; Z20.822 Contact with and (suspected) exposure to COVID-19
CPT/HCPCS: 70496; 70498; 70551; 71045; 80048; 80053; 80061; 81003; 82962; 84484 ×3; 85025 ×2; 93005; 93306; 96374; 96375; 97139; 99285; G0378 ×2; U0003; U0005; 36415; 36416; J1200; J2920; Q9967; S0028